=== PATIENT | male | born 1950 | race Caucasian/White ===

== ENCOUNTER 2019-08-16 14:29 | Outpatient (CLI) | payer MEDICARE, SELFPAY ==
--- NOTE | ~2019-08-16 | CT_ITS ---
EXAMINATION: CT soft tissue neck chest wo DATE: 08/16/2019 15:07 INDICATION: Left neck localized swelling. TECHNIQUE: Computed tomography (CT) of the neck and chest was performed without intravenous contrast. Automated exposure control and iterative reconstruction technique were employed. The dose-length pro duct was 1231.45 mGy-cm. COMPARISON: None FINDINGS: NECK CT: There are likely changes of ocular lens replacement surgeries. There are no pathologically e nlarged lymph nodes. There is mild mucosal thickening in the paranasal sinuses. The mastoid air cells are normal. There is severe cervical spondylosis. CHEST CT: The lungs demonstrate mild atelectasis. There is a 3 mm nodule in right middle lobe, likely benign. No pleural effusion. The heart size is normal. No pericardial effusion. There are surgical c hanges of the stomach. There is moderate thoracic spondylosis. IMPRESSION: 1. No abnormal mass or lymphadenopathy. Reviewed, dictated and finalized at location A.
== END 2019-08-16 14:30 | disposition home or self-care (01) ==
PROVIDERS: PCP Emergency Medicine; Visit Provider Emergency Medicine
DX: R22.1 Localized swelling, mass and lump, neck (principal)
CPT/HCPCS: 70490; 71250

== ENCOUNTER 2020-10-08 14:04 | Emergency (ER) | payer MEDICARE, SELFPAY ==
[2020-10-08 14:13] VITALS: BP 118/72; PULSE 63; RESP 18; TEMP 36.9; O2SAT 99
--- NOTE | 2020-10-08 14:28 | ED.SKABFB ---
HPI - Skin/Abscess/Foreign Bdy General Chief complaint: Extremity Injury, Upper Stated complaint: Swollen finger on Lt hand Time Seen by Provider: 10/08/20 14:18 Source: patient and RN notes reviewed Mode of arrival: ambulatory Limitations: no limitations History of Present Illness HPI narrative: Patient presents today complaining of a wasp sting to his left second finger that was sustained yesterday. He was stung through a thick work glove to the dorsum of his finger. States the hand has been swelling since last night and itches profusely. He has tried cortisone and Benadryl without relief. Denies pain. MD complaint: insect bite/sting Related Data Home Medications Medication Instructions Recorded Confirmed tadalafil 5 mg tablet 5 mg PO DAILY 04/19/19 05/13/20 calcium carbonate 500 mg calcium 500 mg PO DAILY 08/08/19 05/13/20 (1,250 mg) chewable tablet calcium polycarbophil 625 mg tablet 1,250 mg PO BID 08/08/19 05/13/20 cetirizine 10 mg tablet 5 mg PO DAILY PRN 08/08/19 05/13/20 Allergies Allergy/AdvReac Type Severity Reaction Status Date / Time No Known Allergies Allergy Verified 05/13/20 13:11 Review of Systems Review of Systems: CONSTITUTIONAL: Denies body aches, fever, chills, or sweats. EYES: Denies visual changes, redness, or discharge. ENT: Denies rhinorrhea, congestion, sore throat, or otalgia. CARDIOVASCULAR: Denies chest pain, palpitations, or edema. RESPIRATORY: Denies cough or dyspnea. GASTROINTESTINAL: Denies abdominal pain, nausea, vomiting, or diarrhea. GENITOURINARY: Denies dysuria or hematuria. SKIN: Denies rash, itching, or wounds. Insect sting to left hand MUSCULOSKELETAL: Denies back pain, joint pain, or myalgia. NEUROLOGIC: Denies headache, numbness, tingling, or weakness. PSYCH: Denies depression or anxiety. 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 Please see nursing chart for further information. There is no relevant family history pertinent to the presenting complaint Exam Narrative: GENERAL: Well-appearing, well-nourished, and in no acute distress. HEAD: Normocephalic, atraumatic. EYES: EOMI. No redness or drainage. Conjunctivae normal. ENT: Mucous membranes pink and moist. NECK: Normal AROM. CHEST: No respiratory distress. EXTREMITIES: Left hand: Small puncture wound to the dorsum of the left second finger at the proximal phalanx. Clear weeping from the puncture wound noted, due to the edema of the hand and finger. Mild to moderate edema noted to the distal hand. Mild erythema noted as well. Nontender. Range of motion of the second finger limited due to swelling. Distal sensation intact. Capillary refill normal. Radial pulse normal. No red streaking noted. SKIN: Warm, dry, no rash. Capillary refill normal. Normal skin turgor. NEURO: No focal deficits. Alert and oriented x3. Gait steady. PSYCH: Normal affect. No signs of depression or anxiety. Course Vital Signs V
== END 2020-10-08 14:32 | disposition home or self-care (01) ==
PROVIDERS: Emergency Provider Nurse Practitioner; PCP Emergency Medicine
DX: T63.461A Toxic effect of venom of wasps, accidental (unintentional), initial encounter (principal); Z87.891 Personal history of nicotine dependence; I10 Essential (primary) hypertension; E78.2 Mixed hyperlipidemia; G47.33 Obstructive sleep apnea (adult) (pediatric)
CPT/HCPCS: 99213; G0463

== ENCOUNTER → 2021-03-25 02:59 | Outpatient (CLI) | payer MEDICARE, SELFPAY ==
[2021-03-26 01:23] LABS: SARS-CoV-2 RNA PCR Negative
== END ==
PROVIDERS: PCP Emergency Medicine; Visit Provider Emergency Medicine
DX: R05.9 Cough, unspecified (principal); R19.7 Diarrhea, unspecified; R51.9 Headache, unspecified; R53.83 Other fatigue; R11.0 Nausea; Z20.822 Contact with and (suspected) exposure to COVID-19
CPT/HCPCS: C9803; U0003; U0005

== ENCOUNTER 2021-12-27 13:18 | Emergency (ER) | payer MEDICARE, SELFPAY ==
--- NOTE | ~2021-12-27 | XR_ITS ---
EXAMINATION: XR chest 2V DATE: 12/27/2021 14:02 INDICATION: Cough TECHNIQUE: PA and lateral views of the chest were obtained. COMPARISON: Chest CT dated 08/16/2019 FINDINGS: The lungs are clear with no focal airspace opacities, pulmonary edema, pleural effusion or pneumothor ax. The cardiomediastinal silhouette is normal. Moderate thoracic spondylosis. IMPRESSION: 1. No acute cardiopulmonary disease. Reviewed, dictated and finalized at location A.
[2021-12-27 13:45] VITALS: BP 118/76; PULSE 60; RESP 18; TEMP 36.5; O2SAT 100
--- NOTE | 2021-12-27 14:20 | ED.GENADULT ---
HPI - General Adult General Chief complaint: Upper Respiratory Infection Stated complaint: sorethroat,congestion History of Present Illness HPI narrative: Patient is a 71-year-old male who presents to the [facility] care via POV for an evaluation of cold symptoms that began 2 days ago. Additionally, he reports myalgias, productive cough, rhinorrhea, sore throat, and postnasal drip. Robitussin and ibuprofen provides relief. Nothing worsens symptoms. Patient is a former smoker. He states he quit smoking 20 to 30 years ago. Denies known exposure to sick contacts Related Data Allergies Allergy/AdvReac Type Severity Reaction Status Date / Time mercury (elemental) AdvReac Unknown Unknown Verified 12/27/21 13:50 Review of Systems Review of Systems: Denies fever, chills, sweats, change in appetite, poor p.o. intake, headaches, dizziness, LOC, sinus problems, ear pain, nasal congestion, abdominal pain, nausea, vomiting, diarrhea, drooling, difficulty swallowing, shortness of breath, chest pain, wheezing, and heart palpitations PMFSH Past Medical History Medical History Body mass index [BMI] 39.0-39.9, adult (12/30/16) Body mass index [BMI] 40.0-44.9, adult (03/22/17) Cough Cough with congestion of paranasal sinus Dependence on other enabling machines and devices GARZA (dyspnea on exertion) Dyslipidemia Dysuria Encounter for screening colonoscopy HTN (hypertension), benign Hyperglycemia Mixed hyperlipidemia Moderate single current episode of major depressive disorder Morbid obesity with BMI of 40.0-44.9, adult JAEL on CPAP Viral syndrome Wheezing Surgical History Surgical History H/O inguinal hernia repair 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 Family History Family History Father Family history of malignant neoplasm, Onset Age: 75 Alcoholism Mother Family history of kidney disease Family history of chronic obstructive pulmonary disease Sibling Family history of psoriatic arthritis Grandparent Heart disease Social History Social History Social History: quite 20 years ago Smoking status: Never smoker Second hand tobacco smoke exposure: No Alcohol intake: current Substance use: never Substance use type: does not use Gender identity (if verbalized by the patient): Male Spiritual care concerns: No Agree to blood products: Yes Comments I have reviewed and agree with the patient's past medical, surgical, social, and family hx as documented by the RN. There is no relevant family history pertinent to the presenting complaint. Exam Narrative: GENERAL: Well-appearing, well-nourished, and in no acute distress. HEAD: Normocephalic, atraumatic. No sinus tenderness or facial swelling appreciated. EYES: PERRLA and EOMI. No evidence of erythema, swelling, or drainage. ENT: Bilateral external ears and ear canals normal. Bilateral TMs are normal.No TM perforation. Nares clear, no rhinorrhea or epistaxis. Bilateral turbinates without erythema/ swelling. Mucous membranes moist and pink. Uvula is midline without erythema and swelling. Moderate erythema and mild swelling noted to oropharynx otherwise normal. Breath odor and voice normal. NECK: Supple. No Lymphadenopathy or nuchal rigidity appreciated. CHEST: Bilateral lung lakhani are clear to auscultation. No respiratory distress. No evidence of cough or pleuritic cp upon examination. HEART: Regular rate and rhythm. No murmur, gallop, or rub heard. EXTREMITIES: Normal range of motion. No edema. SKIN: Warm, dry, no rash. NEURO: No focal deficits. Alert and oriented x3. Course Course Level of Care: Express Care Visit Vital Signs Vital signs: Vital Signs Temperature 97.7 F 12/27/21 13:45 Pulse
== END 2021-12-27 14:31 | disposition home or self-care (01) ==
PROVIDERS: Emergency Provider Nurse Practitioner Family; PCP Emergency Medicine
DX: J06.9 Acute upper respiratory infection, unspecified (principal); Z20.822 Contact with and (suspected) exposure to COVID-19; Z87.891 Personal history of nicotine dependence; E78.2 Mixed hyperlipidemia; E66.01 Morbid (severe) obesity due to excess calories; Z68.37 Body mass index [BMI] 37.0-37.9, adult; G47.33 Obstructive sleep apnea (adult) (pediatric)
CPT/HCPCS: 71046; 87081; 87426; 87804; 87880; 99213; C9803; G0463

== ENCOUNTER 2022-02-01 11:43 | Emergency (ER) | payer MEDICARE, SELFPAY ==
[2022-02-01 12:38] VITALS: BP 127/81; PULSE 60; RESP 18; TEMP 36.6; O2SAT 100
--- NOTE | 2022-02-01 13:21 | ED.SKABFB ---
HPI - Skin/Abscess/Foreign Bdy General Chief complaint: Skin/Abscess/Foreign Body Stated complaint: rash Time Seen by Provider: 02/01/22 13:21 Source: patient Mode of arrival: ambulatory Limitations: no limitations History of Present Illness HPI narrative: 71-year-old male presented for complaints of painful red rash to right lower leg for 3 days. Denies itching, swelling or drainage. He has used antibiotic cream and hydrocortisone cream without relief. Endorses a history of shingles 5 years ago and has had 1 of his shingles vaccination. He denies rash or skin lesions in any other locations. He denies changes to lotion, soap, detergent etc.. Related Data Allergies Allergy/AdvReac Type Severity Reaction Status Date / Time mercury (elemental) AdvReac Unknown Unknown Verified 02/01/22 12:57 Review of Systems Review of Systems: CONSTITUTIONAL: Denies body aches, fever, chills, or sweats. EYES: Denies visual changes, redness, or discharge. ENT: Denies rhinorrhea, congestion CARDIOVASCULAR: Denies chest pain, palpitations, or edema. RESPIRATORY: Denies cough or dyspnea. GASTROINTESTINAL: Denies abdominal pain, nausea, vomiting, or diarrhea. SKIN: per HPI MUSCULOSKELETAL: Denies back pain, joint pain, or myalgia. NEUROLOGIC: Denies headache, numbness, tingling, or weakness. 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 Family History Family History Father Family history of malignant neoplasm, Onset Age: 75 Alcoholism Mother Family history of kidney disease Family history of chronic obstructive pulmonary disease Sibling Family history of psoriatic arthritis Grandparent Heart disease Social History Social History Social History: quite 20 years ago Smoking status: Never smoker Second hand tobacco smoke exposure: No Alcohol intake: current Substance use: never Substance use type: does not use Gender identity (if verbalized by the patient): Male Spiritual care concerns: No Agree to blood products: Yes Comments At time of signature, I have reviewed and agree with nursing past medical, surgical, social and family history unless otherwise noted. Please see nursing chart for further information. There is no relevant family history pertinent to the presenting complaint Exam Narrative: GENERAL: Well-appearing HEAD: Normocephalic, atraumatic. EYES: conjunctivae clear, and EOMI. ENT: Mucous membranes moist. Oropharynx without edema, erythema or lesions. NECK: Supple. No lymphadenopathy CHEST: Clear to auscultation. HEART: Regular rate and rhythm. SKIN: Warm, dry. Erythematous open vesicals in cluster to right lower leg approximately 6 cm diameter mild clear oozing, consistent with zoster NEURO: Alert and oriented x3. Course Course Emergency Course: Patient is aware of diagnosis, understands and agrees to treatment plan. Anticipatory guidance given. Patient agrees to follow-up as directed and is aware of reasons to seek care at the emergency department. Portions of this record may have been created with voice recognition software Level of Care: [facility] Care Visit
== END 2022-02-01 13:35 | disposition home or self-care (01) ==
PROVIDERS: Emergency Provider Nurse Practitioner Family; PCP Emergency Medicine
DX: B02.9 Zoster without complications (principal); I10 Essential (primary) hypertension; E78.2 Mixed hyperlipidemia; E66.01 Morbid (severe) obesity due to excess calories; Z68.35 Body mass index [BMI] 35.0-35.9, adult; G47.33 Obstructive sleep apnea (adult) (pediatric); Z98.84 Bariatric surgery status
CPT/HCPCS: 99213; G0463

== ENCOUNTER → 2022-04-19 17:05 | Outpatient (CLI) | payer MEDICARE, SELFPAY ==
--- NOTE | ~2022-04-19 | XR_ITS ---
EXAMINATION: XR foot LT 2V DATE: 04/19/2022 17:45 INDICATION: Left foot pain TECHNIQUE: Dorsoplantar, two oblique and lateral views of the left foot were obtained. COMPARISON: None. FINDINGS: Internal fixation at the distal tibia with a pair of screws at the medial malleolus and medial plate and screws. Bone alignment is normal. No acute fractures. Severe osteoarthritis at the first metatars ophalangeal joint. Mild to moderate osteoarthritis at the left ankle and mild osteoarthritis at the s ubtalar and many of the remaining joints in the mid and forefoot. Moderate sized plantar calcaneal sp ur. IMPRESSION: 1. 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 [facility] IMPRESSION: 1. 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
== END ==
PROVIDERS: PCP Emergency Medicine; Visit Provider Emergency Medicine
DX: M19.072 Primary osteoarthritis, left ankle and foot (principal)
CPT/HCPCS: 73620

== ENCOUNTER 2022-05-27 08:03 | Emergency (ER) | payer MEDICARE, SELFPAY ==
[2022-05-27 08:12] VITALS: BP 125/72; PULSE 60; RESP 12; TEMP 36.2; O2SAT 98
--- NOTE | 2022-05-27 08:17 | ED.URI ---
HPI - URI/Sore Throat General Chief Complaint: Upper Respiratory Infection Stated Complaint: Congestion,Cough,Body Aches,Fatigue Time Seen by Provider: 05/27/22 08:17 Source: patient, RN notes reviewed and old records reviewed Mode of arrival: ambulatory Limitations: no limitations History of Present Illness HPI Narrative: 72 year old male presents to [facility] Care with complaints of cough, body aches, fatigue, greenish sinus drainage with congestion and frontal headache with facial sinus pressure for the past 6-7 days. Patient reports that he has been taking Claritin, Flonase nasal spray,Robitussin and also Ibuprofen for his symptoms. MD elicited complaint: cough, sore throat, rhinorrhea, nasal congestion, sinus pain and other (headache) Pertinent past history: sinusitis Onset (ago): day(s) (6-7 days) Pain scale (0-10): 2 Able to tolerate fluids by mouth: Yes Associated symptoms: rhinorrhea, nasal congestion, sore throat, cough and other (fatigue) Treatments prior to arrival: ibuprofen and other (Flonase , claritin) Related Data Allergies Allergy/AdvReac Type Severity Reaction Status Date / Time mercury (elemental) AdvReac Unknown Unknown Verified 05/27/22 08:19 Review of Systems Review of Systems: CONSTITUTIONAL: Denies malaise, chills, sweats, or fever. EYES: Denies visual changes, redness, or discharge. ENT: Reports rhinorrhea, congestion, sinus pain, no otalgia positive for some sore throat. CARDIOVASCULAR: Denies chest pain, palpitations, or edema. RESPIRATORY: Reports occasional dry cough.? Denies dyspnea. GASTROINTESTINAL: Denies abdominal pain, nausea, vomiting, diarrhea SKIN: Denies rash or itching. MUSCULOSKELETAL: Denies myalgia. NEUROLOGIC: reports frontal headache. All systems reviewed & are unremarkable except as noted in HPI and below PMFSH Past Medical History Medical History Body mass index [BMI] 39.0-39.9, adult (12/30/16) Body mass index [BMI] 40.0-44.9, adult (03/22/17) Cough Cough with congestion of paranasal sinus Dependence on other enabling machines and devices GARZA (dyspnea on exertion) Dyslipidemia Dysuria Encounter for screening colonoscopy HTN (hypertension), benign Hyperglycemia Mixed hyperlipidemia Moderate single current episode of major depressive disorder Morbid obesity with BMI of 40.0-44.9, adult JAEL on CPAP Viral syndrome Wheezing Surgical History Surgical History H/O inguinal hernia repair 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 Family History Family History Father Family history of malignant neoplasm, Onset Age: 75 Alcoholism Mother Family history of kidney disease Family history of chronic obstructive pulmonary disease Sibling Family history of psoriatic arthritis Grandparent Heart disease Social History Social History Social History: quite 20 years ago Smoking status: Never smoker Second hand tobacco smoke exposure: No Alcohol intake: current Substance use: never Substance use type: does not use Living arrangements: with family Gender identity (if verbalized by the patient): Male Spiritual care concerns: No Agree to blood products: Yes Comments At time of signature, agree with nursing past medical, surgical, social and family history. There is no relevant family history pertinent to the presenting complaint Exam Narrative: GENERAL: Well-appearing, well-nourished, and in no acute distress. HEAD: Normocephalic EYES: PERRLA, conjunctivae clear ENT: Nares clear, turbinates edematous and erythematous, clear to greenish nasal discharge. Mucous membranes moist. TM pearly davidson with dull light reflex bilaterally; no tragal tenderness. Oropharynx erythematous without lesions. Tonsils not enlarged
== END 2022-05-27 08:36 | disposition home or self-care (01) ==
PROVIDERS: Emergency Provider Registered Nurse; PCP Emergency Medicine
DX: J01.90 Acute sinusitis, unspecified (principal); Z87.891 Personal history of nicotine dependence; I10 Essential (primary) hypertension; E78.2 Mixed hyperlipidemia; E66.01 Morbid (severe) obesity due to excess calories; Z68.35 Body mass index [BMI] 35.0-35.9, adult; G47.33 Obstructive sleep apnea (adult) (pediatric); Z98.84 Bariatric surgery status
CPT/HCPCS: 99213; G0463

== ENCOUNTER 2022-09-16 08:01 | Emergency (ER) | payer MEDICARE, SELFPAY ==
--- NOTE | ~2022-09-16 | XR_ITS ---
EXAMINATION: XR heel LT min 2V DATE: 09/16/2022 08:27 INDICATION: Left heel pain. TECHNIQUE: 2 views of left calcaneus were obtained. COMPARISON: Left foot radiographs 04/19/2022 FINDINGS: Bone alignment is normal. No acute fracture. There is plate and screw fixation of distal ti edilberto. There is mild midfoot osteoarthritis. There is mild ankle joint osteoarthritis. There is an enth esophyte at plantar aspect of calcaneal tuberosity. IMPRESSION: 1. Mild polyarticular osteoarthritis. Reviewed, dictated and finalized at location A.
--- NOTE | 2022-09-16 08:10 | ED.EXTPRO ---
HPI - Extremity Problem General Chief complaint: Extremity Injury, Lower Stated complaint: lt foot pain Time Seen by Provider: 09/16/22 08:10 Source: patient Mode of arrival: ambulatory Limitations: no limitations History of Present Illness HPI Narrative: Jewel is a 72-year-old male patient presenting to the clinic today with complaints of left heel pain. He reports symptoms began yesterday when he was jumping up into a bus. He reports he felt a pop to the medial left heel. History of fracture to the left heel. States pain is worse with walking/bearing weight at 1st and improves as he is walking. Related Data Allergies Allergy/AdvReac Type Severity Reaction Status Date / Time mercury (elemental) AdvReac Unknown Unknown Verified 09/16/22 08:20 Review of Systems Review of Systems: Pertinent positives per HPI. Patient denies any fever, chills, rash, headache, visual changes, dizziness, cough, runny nose, sore throat, shortness of breath, chest pain, palpitations, nausea, vomiting, diarrhea, constipation, abdominal pain, or any urinary issues. [facility] Past Medical History Medical History Body mass index [BMI] 39.0-39.9, adult (12/30/16) Body mass index [BMI] 40.0-44.9, adult (03/22/17) Cough Cough with congestion of paranasal sinus Dependence on other enabling machines and devices GARZA (dyspnea on exertion) Dyslipidemia Dysuria Encounter for screening colonoscopy HTN (hypertension), benign Hyperglycemia Mixed hyperlipidemia Moderate single current episode of major depressive disorder Morbid obesity with BMI of 40.0-44.9, adult JAEL on CPAP Viral syndrome Wheezing Surgical History Surgical History H/O inguinal hernia repair 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 Family History Family History Father Family history of malignant neoplasm, Onset Age: 75 Alcoholism Mother Family history of kidney disease Family history of chronic obstructive pulmonary disease Sibling Family history of psoriatic arthritis Grandparent Heart disease Social History Social History Social History: quite 20 years ago Smoking status: Never smoker Second hand tobacco smoke exposure: No Alcohol intake: current Substance use: never Substance use type: does not use Living arrangements: with family Gender identity (if verbalized by the patient): Male Spiritual care concerns: No Agree to blood products: Yes Comments At the time of my signature, I reviewed and agree with the nursing past medical, surgical, social, and family history. There is no relevant family history pertinent to the patient complaint. Exam Narrative: General: Well-developed, well nourished, in no apparent distress Head: Normocephalic, atraumatic. Cardio: Regular rate and rhythm, s1 and s2 normal, no murmur appreciated. Resp: Clear to auscultation bilaterally, no rhonchi, rales, wheezing or rubs. Musculoskeletal: No deformity,tender to palpation over the left medial heel, pain with plantar flexion against resistance to the left medial heel, grossly normal range of motion, muscle strength strong and equal, peripheral pulse strong, no edema, no cyanosis, normal gait and station Course Course Emergency Course: Portions of this record may have been created with voice recognition software. Level of Care: Express Care Visit Vital Signs Vital signs: Vital signs reviewed MDM - Extremity (Nontraumatic) MDM Narrative Medical decision making narrative: At the time of visit patient is resting comfortably on the exam table. X-ray of the left foot was performed Differential Diagnosis Differential diagnosis: Likely gout and other (Osteoarthritis, plantar fasciitis, metatarsalgia, foot s
[2022-09-16 08:15] VITALS: BP 138/77; PULSE 64; RESP 18; TEMP 36.3; O2SAT 99
== END 2022-09-16 08:40 | disposition home or self-care (01) ==
PROVIDERS: Emergency Provider Nurse Practitioner Family; PCP Emergency Medicine
DX: M77.32 Calcaneal spur, left foot (principal); M19.072 Primary osteoarthritis, left ankle and foot; Z87.891 Personal history of nicotine dependence; E78.5 Hyperlipidemia, unspecified; I10 Essential (primary) hypertension; E78.2 Mixed hyperlipidemia; G47.30 Sleep apnea, unspecified; E66.01 Morbid (severe) obesity due to excess calories; Z68.35 Body mass index [BMI] 35.0-35.9, adult
CPT/HCPCS: 73650; 99213; G0463

== ENCOUNTER 2022-10-30 08:38 | Emergency (ER) | payer MEDICARE, SELFPAY ==
[2022-10-30 08:51] VITALS: BP 147/95; PULSE 55; RESP 18; TEMP 36.3; O2SAT 100
--- NOTE | 2022-10-30 08:54 | ED.DIZZY ---
HPI - Dizziness General Chief Complaint: Dizziness Stated Complaint: dizziness Time Seen by Provider: 10/30/22 08:55 Source: patient Mode of arrival: ambulatory Limitations: no limitations History of Present Illness HPI Narrative: Patient is a 72-year-old male that presents with increasing dizziness over the past 3 days. Patient states standing up or bending over makes dizziness worse. Reports dizziness as feeling like he is going to pass out and not room spinning. Patient states he took his blood pressure last night and it was 78/56. Patient states he has only been taking 1 blood pressure medicine over the past month or 2 but did not take it today. Patient also having sinus pressure and drainage but denies any ear pain, headache, sore throat or fever. Denies any other cardiac history besides blood pressure. Does report his balance seems off. Has been nauseous but no vomiting. Related Data Allergies Allergy/AdvReac Type Severity Reaction Status Date / Time mercury (elemental) AdvReac Unknown Unknown Verified 09/16/22 08:20 Review of Systems Review of Systems: All systems reviewed & are unremarkable except as noted in HPI and below Constitutional: Constitutional: Denies body ache(s), Denies chills, Denies fatigue, Denies fever(s), Denies headache(s), Denies malaise and Denies weakness Eyes: Eyes: Denies blurry vision, Denies irritation and Denies loss of vision ENT: Denies otalgia, Denies headache(s), Reports nasal congestion, Denies nasal discharge, Denies sinus pain, Reports sinus pressure and Denies sore throat Cardiovascular: Cardiovascular: Denies chest pain, Denies irregular heart rhythm and Denies dyspnea Respiratory: Respiratory: Denies dyspnea Gastrointestinal: Gastrointestinal: Denies abdominal pain, Denies melena, Denies hematochezia, Denies diarrhea, Reports nausea and Denies vomiting Musculoskeletal: Musculoskeletal: Denies back pain, Denies myalgias and Denies arthralgias Integumentary/Breasts: Skin/Breast: Denies pruritus and Denies rash Neurologic: Reports dizziness, Denies syncope, Denies headache(s), Denies loss of vision and Denies weakness Psychiatric: Psychiatric: Reports no additional psychiatric complaints Endocrine: Endocrine: Denies fatigue [facility] Past Medical History Medical History Body mass index [BMI] 39.0-39.9, adult (12/30/16) Body mass index [BMI] 40.0-44.9, adult (03/22/17) Cough Cough with congestion of paranasal sinus Dependence on other enabling machines and devices GARZA (dyspnea on exertion) Dyslipidemia Dysuria Encounter for screening colonoscopy HTN (hypertension), benign Hyperglycemia Mixed hyperlipidemia Moderate single current episode of major depressive disorder Morbid obesity with BMI of 40.0-44.9, adult JAEL on CPAP Viral syndrome Wheezing Surgical History Surgical History H/O inguinal hernia repair 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 Family History Family History Father Family history of malignant neoplasm, Onset Age: 75 Alcoholism Mother Family history of kidney disease Family history of chronic obstructive pulmonary disease Sibling Family history of psoriatic arthritis Grandparent Heart disease Social History Social History Social History: quite 20 years ago Smoking status: Never smoker Second hand tobacco smoke exposure: No Alcohol intake: current Substance use: never Substance use type: does not use Living arrangements: with family Gender identity (if verbalized by the patient): Male Spiritual care concerns: No Agree to blood products: Yes Comments At time of signature, agree with nursing past medical, surgical, social and family history. There is no relevant family history pertinent to
[2022-10-30 09:23] VITALS: BP 128/81; BP 139/86; PULSE 52; PULSE 56
[2022-10-30 09:24] VITALS: BP 140/83; PULSE 57
--- NOTE | 2022-10-30 12:00 | ECG_ITS ---
Measurements Intervals [place] Rate: 52 P: -12 SD: 260 QRS: -21 QRSD: 98 T: 24 QT: 438 QTc: 410 Interpretive Statements SINUS BRADYCARDIA WITH FIRST DEGREE AV BLOCK POSSIBLE ANTERIOR MYOCARDIAL INFARCTION , OF INDETERMINATE AGE [30 ms Q WAVE IN V3/V4, OR R < 0.2 mV IN V4] ABNORMAL ECG COMPARED TO ECG 10/30/2022 09:15:00 NO SIGNIFICANT CHANGES Electronically Signed On 11-01-2022 7:21:59 CDT by Nestor Galvan M.D.
== END 2022-10-30 09:25 | disposition short-term general hospital (02) ==
PROVIDERS: Emergency Provider Nurse Practitioner Family; PCP Emergency Medicine
DX: R42 Dizziness and giddiness (principal); Z87.891 Personal history of nicotine dependence; I10 Essential (primary) hypertension; E78.2 Mixed hyperlipidemia; E66.01 Morbid (severe) obesity due to excess calories; Z68.35 Body mass index [BMI] 35.0-35.9, adult; G47.33 Obstructive sleep apnea (adult) (pediatric); Z98.84 Bariatric surgery status
CPT/HCPCS: 93005; 99213; G0463

== ENCOUNTER 2022-10-30 09:47 | Emergency (ER) | payer MEDICARE, SELFPAY ==
[2022-10-30] VITALS (28 sets, daily range): BP systolic 133–157; BP diastolic 56–107; PULSE 51–66; RESP 10–30; TEMP 37; O2SAT 96–100
--- NOTE | ~2022-10-30 | XR_ITS ---
EXAMINATION: XR chest 1V portable DATE: 10/30/2022 13:02 INDICATION: Dizziness. TECHNIQUE: A single frontal view of the chest was obtained on 2 radiographs. COMPARISON: Chest 2 views 12/27/2021, chest CT 08/16/2019 FINDINGS: There is no pneumonia, pleural effusion, or pneumothorax. The heart size is normal. IMPRESSION: 1. No acute cardiopulmonary disease. Reviewed, dictated and finalized at location A.
--- NOTE | ~2022-10-30 | CT_ITS ---
EXAMINATION: CT brain wo con INDICATION: Vertigo COMPARISON: None TECHNIQUE: Standard unenhanced head CT. The dose-length product (DLP) was 605.33 mGy-cm. The mA was a djusted according to patient size. Iterative reconstruction technique was employed. FINDINGS: There is no acute intraparenchymal hemorrhage. No evidence of mass lesion. No evidence of a cute infarction. There is mild periventricular and subcortical hypodensity probably related to small vessel ischemic disease. There is mild prominence of the sulci and ventricles related to cerebral atr ophy. Intracranial calcified cerebral atherosclerosis is noted. There are no extra-axial collections. There is no mass effect or midline shift. Changes in the globes are likely from ocular lens surgery. The visualized sinuses and mastoid air cells are well aerated. IMPRESSION: 1. No acute intracranial abnormality. 2. Age related findings. Reviewed, dictated and finalized at location F.
--- NOTE | 2022-10-30 10:39 | ECG_ITS ---
Measurements Intervals [place] Rate: 55 P: -3 KS: 223 QRS: -20 QRSD: 89 T: 17 QT: 440 QTc: 424 Interpretive Statements SINUS BRADYCARDIA WITH FIRST DEGREE AV BLOCK WITH OCCASIONAL VENTRICULAR PREMATURE COMPLEXES SEPTAL MYOCARDIAL INFARCTION [40+ ms Q WAVE IN V1/V2], OF INDETERMINATE AGE CONSIDER PREVIOUS INFERIOR INFARCTION ABNORMAL ECG COMPARED TO ECG 09/07/2018 07:52:29 NO SIGNIFICANT CHANGE Electronically Signed On 10-31-2022 7:06:15 CDT by Nestor Galvan M.D.
[2022-10-30 11:03] LABS: Basophils Absolute Auto 0.1 K/mm3 (0.0-0.1); Basophils Percent Auto 0.8 % (0.2-1.2); Eosinophils Absolute Auto 0.1 K/mm3 (0-0.3); Eosinophils Percent Auto 0.6 % (0-4.4); Hematocrit 44.7 % (42.0-52.0); Hemoglobin 15.1 g/dL (14.0-18.0); Immature Granulocyte Absolute 0.03 K/mm3 (0.00-0.031); Immature Granulocyte Percent A 0.3 % (0-0.5); Lymphocytes Absolute Auto 1.59 K/mm3 (0.9-3.2); Lymphocytes Percent Auto 16.8 % (18.3-44.2); Mean Corpuscular HGB Conc 33.8 g/dl (32-36); Mean Corpuscular Hemoglobin 32.5 pg (26-34); Mean Corpuscular Volume 96.1 fl (80-100); Mean Platelet Volume 10.4 fl (7.4-10.4); Monocytes Absolute Auto 0.6 K/mm3 (0.1-0.6); Monocytes Percent Auto 6.3 % (2.6-8.5); Neutrophils Absolute Auto 7.1 K/mm3 (1.3-6.7); Neutrophils Percent Auto 75.2 % (45.5-73.1); Platelet Count Result 264 k/mm3 (150-375); Red Blood Count 4.65 M/mm3 (4.6-6.20); Red Cell Distribution Width 13.6 % (11.5-14.5); White Blood Count 9.5 K/mm3 (4.5-10.0)
[2022-10-30 11:15] LABS: Alanine Aminotransferase 18 U/L (6-50); Albumin Level 4.7 g/dL (3.5-5.1); Alkaline Phosphatase 71 U/L (38-126); Anion Gap 12 mmol/L (8-16); Aspartate Amino Transferase 27 U/L (17-59); Bilirubin,Total 1.1 mg/dL (0.2-1.3); Blood Urea Nitrogen 12 mg/dL (9-20); Calcium 9.8 mg/dL (8.4-10.2); Carbon Dioxide 23 mmol/L (22-30); Chloride 102 mmol/L (98-107); Estimated CRCL calculation 90 ml/min; Estimated Glomerular Filt Rate > 60; Glucose 114 mg/dL (65-110); Potassium 3.9 mmol/L (3.4-5.0); Sodium 137 mmol/L (137-145)
--- NOTE | 2022-10-30 12:57 | ED.DIZZY ---
HPI - Dizziness General Chief Complaint: Dizziness Stated Complaint: dizziness Time Seen by Provider: 10/30/22 12:00 History of Present Illness HPI Narrative: 72-year-old male with history of hypertension presented the emergency department for evaluation of 2 days of dizziness and lightheadedness. Patient reports he did have some episodes of low blood pressure yesterday and did hold his blood pressure medications. Patient did present to the prompt care today and was found to have positive orthostatic vitals. Upon arrival to emergency department patient does feel improved and denies any complaint. Patient states he may not drink enough water. Patient denies any exertional shortness of breath at his typical baseline but does have increased exertional fatigue and dizziness over the last 2 days. Patient did have a water pill added approximately a month ago but only took this for short time and has not taken it for many weeks. Related Data Allergies Allergy/AdvReac Type Severity Reaction Status Date / Time mercury (elemental) AdvReac Unknown Unknown Verified 09/16/22 08:20 Review of Systems Review of Systems: All systems reviewed & are unremarkable except as noted in HPI and below PMFSH Past Medical History Medical History Body mass index [BMI] 39.0-39.9, adult (12/30/16) Body mass index [BMI] 40.0-44.9, adult (03/22/17) Cough Cough with congestion of paranasal sinus Dependence on other enabling machines and devices GARZA (dyspnea on exertion) Dyslipidemia Dysuria Encounter for screening colonoscopy HTN (hypertension), benign Hyperglycemia Mixed hyperlipidemia Moderate single current episode of major depressive disorder Morbid obesity with BMI of 40.0-44.9, adult JAEL on CPAP Viral syndrome Wheezing Surgical History Surgical History H/O inguinal hernia repair 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 Family History Family History Father Family history of malignant neoplasm, Onset Age: 75 Alcoholism Mother Family history of kidney disease Family history of chronic obstructive pulmonary disease Sibling Family history of psoriatic arthritis Grandparent Heart disease Social History Social History Social History: quite 20 years ago Smoking status: Never smoker Second hand tobacco smoke exposure: No Alcohol intake: current Substance use: never Substance use type: does not use Living arrangements: with family Gender identity (if verbalized by the patient): Male Spiritual care concerns: No Agree to blood products: Yes Exam Narrative: APPEARANCE: Well appearing, no pain, no distress, well-nourished. HEAD: normocephalic, atraumatic. EYES: PERRLA/EOMI, conjunctivae clear. NOSE: Normal no drainage EARS:TMS clear with good light reflex. THROAT: Pharynx clear, no exudate. NECK: Supple. No adenopathy, no masses. RESPIRATORY: Airway patent, respirations nonlabored. Clear to auscultation bilaterally, no rales, rhonchi, wheezing. CARDIOVASCULAR: Regular rate and rhythm without murmurs rubs or gallops. ABDOMINAL: Soft, nontender, nondistended, normal bowel sounds MUSCULOSKELETAL: Moves all extremities. Strength/ROM intact, No edema, No calf tenderness. NEURO: Alert. Cranial nerves II through XII intact. Grossly intact SKIN: Warm, dry. Normal Color Course Course Emergency Course: 72-year-old male presented the emergency department for evaluation of dizziness and positive orthostatic vital signs at urgent care today. Patient family updated on the plan for work-up rehydration and rechecking of his orthostatic vitals. Patient had normal orthostatic vital signs after rehydration. Patient states he does still have some residual lightheadedness. Patient was improved aft
[2022-10-30] MEDS: SODIUM CHLORIDE 0.9% IV 1,000 ML 999 ML IV CONT (13:04)
[2022-10-30] MEDS: MECLIZINE HCL 25 MG TABLET PO (16:21)
== END 2022-10-30 17:46 | disposition home or self-care (01) ==
PROVIDERS: Emergency Medicine; Emergency Provider Emergency Medicine; PCP Emergency Medicine
DX: R42 Dizziness and giddiness (principal); I10 Essential (primary) hypertension; E78.2 Mixed hyperlipidemia; G47.33 Obstructive sleep apnea (adult) (pediatric); E66.01 Morbid (severe) obesity due to excess calories; Z68.35 Body mass index [BMI] 35.0-35.9, adult; Z98.84 Bariatric surgery status; I44.0 Atrioventricular block, first degree; I49.3 Ventricular premature depolarization; R94.31 Abnormal electrocardiogram [ECG] [EKG]
CPT/HCPCS: 36415; 70450; 71045; 80053; 85025; 93005; 96360; 96361; 99284; A9270; J7030

== ENCOUNTER 2023-01-22 08:35 | Emergency (ER) | payer MEDICARE, SELFPAY ==
--- NOTE | ~2023-01-22 | XR_ITS ---
EXAMINATION: XR chest 2V DATE: 01/22/2023 09:21 INDICATION: Cough. Left lung crackles. TECHNIQUE: Frontal and lateral views of the chest were obtained. COMPARISON: Chest single view 10/30/2022, chest CT 08/16/2019 FINDINGS: There are mild airspace opacities in the lower lung zones. No pleural effusion or pneumotho rax. The heart size is normal. There is an old healed left rib fracture. IMPRESSION: 1. Mild airspace opacities in the lower lung zones, consistent with atelectasis versus pneumonia. Reviewed, dictated and finalized at location A. INAL INTELLIGENCE ANALYST
[2023-01-22 08:57] VITALS: BP 119/72; PULSE 76; RESP 18; TEMP 36.5; O2SAT 99
--- NOTE | 2023-01-22 09:22 | ED.URI ---
HPI - URI/Sore Throat General Chief Complaint: Upper Respiratory Infection Stated Complaint: cough,congestion Time Seen by Provider: 01/22/23 09:00 Source: patient Mode of arrival: ambulatory Limitations: no limitations History of Present Illness HPI Narrative: Jewel is a 72-year-old male patient presenting to the clinic today with complaints of cough and chest congestion x2 weeks. He reports he is bringing up some clear phlegm. He denies any fever or chills. He denies any shortness of breath. No history of COPD or asthma MD elicited complaint: sore throat and nasal congestion Related Data Allergies Allergy/AdvReac Type Severity Reaction Status Date / Time mercury (elemental) AdvReac Unknown Unknown Verified 11/03/22 10:04 Review of Systems Review of Systems: Pertinent positives per HPI. Patient denies any fever, chills, rash, headache, visual changes, dizziness, shortness of breath, chest pain, palpitations, nausea, vomiting, diarrhea, constipation, abdominal pain, or any urinary issues. PMFSH Past Medical History Medical History Body mass index [BMI] 39.0-39.9, adult (12/30/16) Body mass index [BMI] 40.0-44.9, adult (03/22/17) Cough Cough with congestion of paranasal sinus Dependence on other enabling machines and devices GARZA (dyspnea on exertion) Dyslipidemia Dysuria Encounter for screening colonoscopy HTN (hypertension), benign Hyperglycemia Mixed hyperlipidemia Moderate single current episode of major depressive disorder Morbid obesity with BMI of 40.0-44.9, adult JAEL on CPAP Sinusitis Viral syndrome Wheezing Surgical History Surgical History H/O inguinal hernia repair 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 Family History Family History Father Family history of malignant neoplasm, Onset Age: 75 Alcoholism Mother Family history of kidney disease Family history of chronic obstructive pulmonary disease Sibling Family history of psoriatic arthritis Grandparent Heart disease Social History Social History Social History: quite 20 years ago Smoking status: Never smoker Second hand tobacco smoke exposure: No Alcohol intake: current Substance use: never Substance use type: does not use Lack of Transportation: No Lack of Food: Never True Current Housing: I Have Housing Concerned About Future Housing: No Difficulty Paying Gas/Electric Bills: No Difficulty Paying for Meds: No Currently Unemployed: No Education: Trade/Vocational Certificate Difficulty w/ Childcare or Family Care: No Living arrangements: with family Gender identity (if verbalized by the patient): Male Spiritual care concerns: No Agree to blood products: Yes Comments At the time of my signature, I reviewed and agree with the nursing past medical, surgical, social, and family history. There is no relevant family history pertinent to the patient complaint. Exam Narrative: General: Well-developed, obese, in no apparent distress Head: Normocephalic, atraumatic Eyes: Pupils equally round and reactive to light bilaterally, EOM intact, sclera and conjunctive clear, no discharge, lids normal Ears: TMs intact and clear, ear canals clear, no drainage, grossly hearing normal. Nose: Nares patent, no discharge, no inflammation, no sinus tenderness. Mouth: Oral pharynx without lesions or masses, good dentition, MMM. Neck: Supple, trachea midline, no enlargement of anterior or posterior cervical nodes, no thyroid masses or goiter palpable. Cardio: Regular rate and rhythm, s1 and s2 normal, no murmur appreciated. Resp: Crackles heard over the left lower lobe, no rhonchi, wheezing or rubs Course Course Emergency Course: Portions of this record m
--- NOTE | 2023-01-22 14:13 | PC.NURSE ---
0940 PT SENT HOME WITH INCENTIVE SPIROMETER, STATED HAS USED BEFORE NO DIRECTION NEEDED.
== END 2023-01-22 09:40 | disposition home or self-care (01) ==
PROVIDERS: Emergency Provider Nurse Practitioner Family; PCP Emergency Medicine
DX: J18.9 Pneumonia, unspecified organism (principal); I10 Essential (primary) hypertension; E78.2 Mixed hyperlipidemia; Z20.822 Contact with and (suspected) exposure to COVID-19
CPT/HCPCS: 71046; 87081; 87426; 87804; 87880; 99213; C9803; G0463

== ENCOUNTER 2023-06-03 15:42 | Emergency (ER) | payer MEDICARE, SELFPAY ==
--- NOTE | 2023-06-03 15:45 | ED.URI ---
HPI - URI/Sore Throat General Chief Complaint: Upper Respiratory Infection Stated Complaint: Sinus Time Seen by Provider: 06/03/23 15:44 Source: patient Mode of arrival: ambulatory Limitations: no limitations History of Present Illness HPI Narrative: Patient is a 73-year-old male who presents with 3 days of sinus congestion, drainage, cough and body aches. 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 Has been taking Robitussin and [place] with no relief. Denies any fever, chills, nausea, vomiting, diarrhea. Related Data Allergies Allergy/AdvReac Type Severity Reaction Status Date / Time mercury (elemental) AdvReac Unknown Unknown Verified 04/20/23 10:10 Review of Systems Review of Systems: All systems reviewed & are unremarkable except as noted in HPI and below Constitutional: Constitutional: Reports body ache(s), Denies chills, Denies fatigue, Denies fever(s), Denies headache(s), Denies malaise and Denies weakness Eyes: Eyes: Denies blurry vision, Denies itchy eyes and Denies loss of vision ENT: Denies otalgia, Denies headache(s), Reports nasal congestion, Denies sinus pain and Denies sore throat Cardiovascular: Cardiovascular: Denies chest pain, Denies irregular heart rhythm and Denies dyspnea Respiratory: Respiratory: Reports cough and Denies dyspnea Gastrointestinal: Gastrointestinal: Denies abdominal pain, Denies diarrhea, Denies nausea and Denies vomiting Musculoskeletal: Musculoskeletal: Denies back pain, Denies myalgias and Denies arthralgias Integumentary/Breasts: Skin/Breast: Denies pruritus and Denies rash Neurologic: Denies headache(s), Denies loss of vision and Denies weakness Psychiatric: Psychiatric: Reports no additional psychiatric complaints Endocrine: Endocrine: Denies fatigue Allergic/Immunologic: Allergic/Immunologic: Denies itchy eyes PMFSH Past Medical History Medical History Body mass index [BMI] 39.0-39.9, adult (12/30/16) Body mass index [BMI] 40.0-44.9, adult (03/22/17) Cough Cough with congestion of paranasal sinus Dependence on other enabling machines and devices GARZA (dyspnea on exertion) Dyslipidemia Dysuria Encounter for screening colonoscopy HTN (hypertension), benign Hyperglycemia Mixed hyperlipidemia Moderate single current episode of major depressive disorder Morbid obesity with BMI of 40.0-44.9, adult JAEL on CPAP Screening PSA (prostate specific antigen) Sinusitis Viral syndrome Wheezing Surgical History Surgical History H/O inguinal hernia repair 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 Family History Family History Father Family history of malignant neoplasm, Onset Age: 75 Alcoholism Mother Family history of kidney disease Family history of chronic obstructive pulmonary disease Sibling Family history of psoriatic arthritis Grandparent Heart disease Social History Social History Social History: quite 20 years ago Smoking status: Never smoker Second hand tobacco smoke exposure: No Alcohol intake: current Substance use: never Substance use type: does not use Current Housing: Decline to Answer Concerned About Future Housing: Decline to Answer Difficulty Paying Gas/Electric Bills: Decline to Answer Difficulty Paying for Meds: Decline to Answer Currently Unemployed: Decline to Answer Education: Decline to Answer Difficulty w/ Childcare or Family Care: Decline to Answer Living arrangements: with family Gender identity (if verbalized by the patient): Male Spiritual care concerns: No Agree to blood products: Yes Comments At time of signature, agree with nursing past medical, surgical, social and family history. There is no relevant family history pertinent to the p
[2023-06-03 15:51] VITALS: BP 146/83; PULSE 65; RESP 16; TEMP 36.8; O2SAT 99
== END 2023-06-03 16:29 | disposition home or self-care (01) ==
PROVIDERS: Emergency Provider Nurse Practitioner Family; PCP Emergency Medicine
DX: J06.9 Acute upper respiratory infection, unspecified (principal); R05.9 Cough, unspecified; Z87.01 Personal history of pneumonia (recurrent); Z20.822 Contact with and (suspected) exposure to COVID-19; Z87.891 Personal history of nicotine dependence; E78.5 Hyperlipidemia, unspecified; I10 Essential (primary) hypertension; E78.2 Mixed hyperlipidemia; E66.01 Morbid (severe) obesity due to excess calories; Z68.37 Body mass index [BMI] 37.0-37.9, adult; G47.33 Obstructive sleep apnea (adult) (pediatric); Z98.84 Bariatric surgery status
CPT/HCPCS: 87426; 87804; 99213; G0463

== ENCOUNTER 2023-10-20 08:06 | Emergency (ER) | payer MEDICARE, SELFPAY ==
--- NOTE | 2023-10-20 08:12 | ED.GENADULT ---
HPI - General Adult General Chief complaint: Upper Respiratory Infection Stated complaint: + covid-19 result Time Seen by Provider: 10/20/23 08:12 Source: patient, RN notes reviewed and old records reviewed Mode of arrival: ambulatory Limitations: no limitations History of Present Illness HPI narrative: 83-year-old male presents to the [facility] with concerns for COVID-19. Patient presents with sinus congestion, cough and generalized fatigue that started today. Tested positive for COVID-19 at home. Did take Tylenol prior to arrival Treatments prior to arrival: none Related Data Home Medications Medication Instructions Recorded Confirmed fexofenadine 180 mg tablet 180 mg PO DAILY 09/20/23 10/20/23 (Barb Allergy) Allergies Allergy/AdvReac Type Severity Reaction Status Date / Time mercury (elemental) Allergy Intermediate Rash Verified 10/20/23 08:25 Review of Systems Review of Systems: All systems reviewed & are unremarkable except as noted in HPI and below Constitutional: Constitutional: Reports no additional constitutional complaints Eyes: Eyes: Reports no additional eye complaints ENT: Reports as per HPI and Reports nasal congestion Cardiovascular: Cardiovascular: Reports no additional cardiovascular complaints, Denies chest pain and Denies dyspnea Respiratory: Respiratory: Reports as per HPI, Denies chest congestion, Reports cough and Denies dyspnea Gastrointestinal: Gastrointestinal: Reports no additional gastrointestinal complaints, Denies abdominal pain, Denies nausea and Denies vomiting Musculoskeletal: Musculoskeletal: Reports no additional musculoskeletal complaints Integumentary/Breasts: Skin/Breast: Reports system reviewed and no additional complaints, except as docu Neurologic: Reports system reviewed and no additional complaints, except as documented Psychiatric: Psychiatric: Reports no additional psychiatric complaints Allergic/Immunologic: Allergic/Immunologic: Reports no additional allergic/immunologic complaints [facility] Past Medical History Medical History Body mass index [BMI] 39.0-39.9, adult (12/30/16) Body mass index [BMI] 40.0-44.9, adult (03/22/17) Cough Cough with congestion of paranasal sinus Dependence on other enabling machines and devices GARZA (dyspnea on exertion) Dyslipidemia Dysuria Encounter for screening colonoscopy HTN (hypertension), benign Hyperglycemia Mixed hyperlipidemia Moderate single current episode of major depressive disorder Morbid obesity with BMI of 40.0-44.9, adult JAEL on CPAP Screening PSA (prostate specific antigen) Sinusitis Viral syndrome Wheezing Surgical History Surgical History H/O inguinal hernia repair 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 Family History Family History Father Family history of malignant neoplasm, Onset Age: 75 Alcoholism Mother Family history of kidney disease Family history of chronic obstructive pulmonary disease Sibling Family history of psoriatic arthritis Grandparent Heart disease Social History Social History Social History: quite 20 years ago Smoking status: Never smoker Second hand tobacco smoke exposure: No Alcohol intake: current Substance use: never Substance use type: does not use Current Housing: Decline to Answer Concerned About Future Housing: Decline to Answer Difficulty Paying Gas/Electric Bills: Decline to Answer Difficulty Paying for Meds: Decline to Answer Currently Unemployed: Decline to Answer Education: Decline to Answer Difficulty w/ Childcare or Family Care: Decline to Answer Living arrangements: with family Gender identity (if verbalized by the patient): Male Spiritual care concerns: No Agree to blood products: Yes
[2023-10-20 08:15] VITALS: BP 134/81; PULSE 64; RESP 18; TEMP 36.6; O2SAT 99
[2023-10-20 08:17] VITALS: BP 134/81; PULSE 64; RESP 18; TEMP 36.6; O2SAT 99
== END 2023-10-20 08:31 | disposition home or self-care (01) ==
PROVIDERS: Emergency Provider Nurse Practitioner; PCP Emergency Medicine
DX: U07.1 COVID-19 (principal); Z87.891 Personal history of nicotine dependence; I10 Essential (primary) hypertension; E78.2 Mixed hyperlipidemia; E66.01 Morbid (severe) obesity due to excess calories; Z68.37 Body mass index [BMI] 37.0-37.9, adult; G47.33 Obstructive sleep apnea (adult) (pediatric); Z98.84 Bariatric surgery status
CPT/HCPCS: 87426; 99212; G0463

== ENCOUNTER 2023-12-19 08:13 | Emergency (ER) | payer MEDICARE, SELFPAY ==
--- NOTE | ~2023-12-19 | XR_ITS ---
Clinical Indication: Cough PA and lateral views of the chest: Comparison: 01/22/2023 Findings: The lungs are clear, without evidence of focal consolidation or pleural effusion. Cardiome diastinal silhouette is within normal limits. Bones and soft tissues are unremarkable. Impression: Normal chest. Reviewed, dictated and finalized at location . Impression: Normal chest.
[2023-12-19 08:28] VITALS: BP 139/85; PULSE 58; RESP 18; TEMP 36.4; O2SAT 97
--- NOTE | 2023-12-19 08:32 | ED.URI ---
HPI - URI/Sore Throat General Chief Complaint: Upper Respiratory Infection Stated Complaint: coughing Time Seen by Provider: 12/19/23 08:35 Source: patient, RN notes reviewed and old records reviewed Mode of arrival: ambulatory Limitations: no limitations History of Present Illness HPI Narrative: 73-year-old male to [facility] with complaint of cough, fatigue, decreased sleep and sore throat for the past 2-3 weeks. Patient reports calling his PCP last week and being put on a Z-Phil. Patient states that his cough is sometimes productive with clear sputum. Patient has attempted to treat at home with [place] cold, Robitussin, hot tea and cough drops. Patient denies shortness of breath, difficulty swallowing, fever, pertinent medical history. Patient resting in exam room in no acute distress. Patient able to speak in complete sentences without difficulty. Respirations even and nonlabored. Related Data Home Medications Medication Instructions Recorded Confirmed fexofenadine 180 mg tablet 180 mg PO DAILY 09/20/23 12/19/23 ([facility]r Allergy) Allergies Allergy/AdvReac Type Severity Reaction Status Date / Time mercury (elemental) Allergy Intermediate Rash Verified 12/19/23 08:36 Review of Systems Review of Systems: All systems reviewed & are unremarkable except as noted in HPI and below Constitutional: Constitutional: Reports as per HPI, Reports difficulty sleeping and Reports fatigue Eyes: Eyes: Reports no additional eye complaints ENT: Reports as per HPI, Reports otalgia ( Bilateral fullness) and Reports sore throat Cardiovascular: Cardiovascular: Reports no additional cardiovascular complaints, Denies chest pain and Denies dyspnea Respiratory: Respiratory: Reports no additional respiratory complaints, Reports cough and Denies dyspnea Musculoskeletal: Musculoskeletal: Reports no additional musculoskeletal complaints Neurologic: Reports system reviewed and no additional complaints, except as documented Psychiatric: Psychiatric: Reports no additional psychiatric complaints [facility] Past Medical History Medical History Body mass index [BMI] 39.0-39.9, adult (12/30/16) Body mass index [BMI] 40.0-44.9, adult (03/22/17) Cough Cough with congestion of paranasal sinus Dependence on other enabling machines and devices GARZA (dyspnea on exertion) Dyslipidemia Dysuria Encounter for screening colonoscopy HTN (hypertension), benign Hyperglycemia Mixed hyperlipidemia Moderate single current episode of major depressive disorder Morbid obesity with BMI of 40.0-44.9, adult JAEL on CPAP Screening PSA (prostate specific antigen) Sinusitis Viral syndrome Wheezing Surgical History Surgical History H/O inguinal hernia repair 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 Family History Family History Father Family history of malignant neoplasm, Onset Age: 75 Alcoholism Mother Family history of kidney disease Family history of chronic obstructive pulmonary disease Sibling Family history of psoriatic arthritis Grandparent Heart disease Social History Social History Social History: quite 20 years ago Smoking status: Never smoker Second hand tobacco smoke exposure: No Alcohol intake: current Substance use: never Substance use type: does not use Current Housing: Decline to Answer Concerned About Future Housing: Decline to Answer Difficulty Paying Gas/Electric Bills: Decline to Answer Difficulty Paying for Meds: Decline to Answer Currently Unemployed: Decline to Answer Education: Decline to Answer Difficulty w/ Childcare or Family Care: Decline to Answer Living arrangements: with family Gender identity (if verbalized by the patient): Male
== END 2023-12-19 09:15 | disposition home or self-care (01) ==
PROVIDERS: Emergency Provider Nurse Practitioner Family; PCP Emergency Medicine
DX: H66.93 Otitis media, unspecified, bilateral (principal); I10 Essential (primary) hypertension; E78.2 Mixed hyperlipidemia; E66.01 Morbid (severe) obesity due to excess calories; Z68.37 Body mass index [BMI] 37.0-37.9, adult; G47.33 Obstructive sleep apnea (adult) (pediatric); Z98.84 Bariatric surgery status
CPT/HCPCS: 71046; 99213; G0463

== ENCOUNTER 2024-01-13 10:25 | Emergency (ER) | payer MEDICARE, SELFPAY ==
--- NOTE | ~2024-01-13 | XR_ITS ---
EXAMINATION: XR chest 2V DATE: 01/13/2024 11:19 INDICATION: Productive cough. TECHNIQUE: Frontal and lateral views of the chest were obtained. COMPARISON: Chest 2 views 12/19/2023, chest CT 08/16/2019 FINDINGS: There is no pneumonia, pleural effusion, or pneumothorax. The heart size is normal. IMPRESSION: 1. No acute cardiopulmonary disease. Reviewed, dictated and finalized at location B.
[2024-01-13 10:36] VITALS: BP 125/83; PULSE 67; RESP 17; TEMP 36.6; O2SAT 97
--- NOTE | 2024-01-13 11:00 | ED_ITS ---
HPI - URI/Sore Throat General Chief Complaint: Upper Respiratory Infection Stated Complaint: cough Time Seen by Provider: 01/13/24 11:00 Source: patient, RN notes reviewed and old records reviewed Mode of arrival: ambulatory Limitations: no limitations History of Present Illness HPI Narrative: 73-year-old male presents to the [facility] with complaints of a continued cough. Coughing worse at night. Patient reports states had a cough for at least 6 weeks. Has had around of and amoxicillin as well as 2 rounds of azithromycin since the 12 of December. Patient's is very concerned that he might have pneumonia. Did have an x-ray early December. Patient just finished his azithromycin yesterday. Patient reports that he does use CPAP. States he has had some sinus issue since having COVID in October. Onset (ago): week(s) (6) Related Data Home Medications Medication Instructions Recorded Confirmed fexofenadine 180 mg tablet 180 mg PO DAILY 09/20/23 01/13/24 (Barb Allergy) Allergies Allergy/AdvReac Type Severity Reaction Status Date / Time mercury (elemental) AdvReac Intermediate Rash Verified 01/13/24 10:44 Review of Systems Review of Systems: All systems reviewed & are unremarkable except as noted in HPI and below Constitutional: Constitutional: Reports no additional constitutional complaints ENT: Reports as per HPI Cardiovascular: Cardiovascular: Reports no additional cardiovascular complaints, Denies chest pain and Denies dyspnea Respiratory: Respiratory: Reports as per HPI, Reports chest congestion, Reports cough and Denies dyspnea Gastrointestinal: Gastrointestinal: Reports no additional gastrointestinal complaints, Denies abdominal pain, Denies nausea and Denies vomiting Musculoskeletal: Musculoskeletal: Reports no additional musculoskeletal complaints Integumentary/Breasts: Skin/Breast: Reports system reviewed and no additional complaints, except as docu PMFSH Past Medical History Medical History Body mass index [BMI] 39.0-39.9, adult (12/30/16) Body mass index [BMI] 40.0-44.9, adult (03/22/17) Cough Cough with congestion of paranasal sinus Dependence on other enabling machines and devices GARZA (dyspnea on exertion) Dyslipidemia Dysuria Encounter for screening colonoscopy HTN (hypertension), benign Hyperglycemia Mixed hyperlipidemia Moderate single current episode of major depressive disorder Morbid obesity with BMI of 40.0-44.9, adult JAEL on CPAP Screening PSA (prostate specific antigen) Sinusitis Viral syndrome Wheezing Surgical History Surgical History H/O inguinal hernia repair 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 Family History Family History Father Family history of malignant neoplasm, Onset Age: 75 Alcoholism Mother Family history of kidney disease Family history of chronic obstructive pulmonary disease Sibling Family history of psoriatic arthritis Grandparent Heart disease Social History Social History Social History: quite 20 years ago Smoking status: Never smoker Second hand tobacco smoke exposure: No Alcohol intake: current Substance use: never Substance use type: does not use Current Housing: Decline to Answer Concerned About Future Housing: Decline to Answer Difficulty Paying Gas/Electric Bills: Decline to Answer Difficulty Paying for Meds: Decline to Answer Currently Unemployed: Decline to Answer Education: Decline to Answer Difficulty w/ Childcare or Family Care: Decline to Answer Living arrangements: with family Gender identity (if verbalized by the patient): Male Spiritual care concerns: No Agree to blood products: Yes Comments At the time of my signature, I reviewed and agree with the nursing past medical, surgical, social, and family history. There is no relevant family history pertinent to the patient complaint. Exam Const: General: cooperative, healthy appearing, comfortable, no acute distress, well developed, alert and well nourished Nutritional Appearance: well nourished and obese Orientation/consciousness: patient oriented x3 Limitations: no limitations HENMT: Head: normal to inspection Ears: hearing grossly normal bilaterally, external ears normal, TM's normal bilaterally, EAC's normal, mastoids normal and no periauricular adenopathy Face/Nose/Sinus: Normal external nose present, normal facial exam and face symmetric Face and sinus: normal facial exam, sinuses nontender and face symmetric Mouth: Yes Normal oral and palatal mucosa present, Yes lip normal and Yes tongue normal Throat: uvula midline, postnasal drainage and no uvular edema Eyes: General: appearance normal, both eyes and all related structures Alignment and Position: alignment normal Periorbital: periorbital findings normal Neck: Neck: normal visual inspection, full ROM, no lymphadenopathy and no meningeal signs Chest: Chest palpation & inspection: normal inspection of the chest Resp: Effort & Inspection: normal respiratory effort and able to speak in complete sentences Auscultation: clear to auscultation bilaterally, no crackles, no rales, no rhonchi and wheezes expiratory wheezes and scattered wheezes Cardio: Rate: regular rate Skin: General skin exam: normal color and no rashes or lesions noted Lesions: no lesions Rashes: no rashes Wounds: no wounds Neuro: General: patient oriented x3, gait normal, tone normal, moves all extremities and no meningeal signs Cognition (Neuro): normal cognition Speech: normal speech Gait exam (Neuro): Normal gait present Extrem: General: normal to inspection, full ROM, capillary refill normal and normal gait Psych: Appearance: grossly normal and well kempt Mental Status: mental status grossly normal Speech and movement: Normal speech and movement present and Clear speech present Affect: normal affect Attitude: cooperative Course Course Level of Care: [facility] Visit Vital Signs Vital signs: Vital Signs Temperature 97.8 F 01/13/24 10:36 Pulse Rate 67 01/13/24 10:36 Respiratory Rate 17 01/13/24 10:36 Blood Pressure 125/83 01/13/24 10:36 Pulse Oximetry 97 01/13/24 10:36 Oxygen Delivery Room Air 01/13/24 10:36 Temperature 97.8 F 01/13/24 10:36 Pulse Rate 67 01/13/24 10:36 Respiratory Rate 17 01/13/24 10:36 Blood Pressure 125/83 01/13/24 10:36 Pulse Oximetry 97 01/13/24 10:36 Oxygen Delivery Room Air 01/13/24 10:36 Reviewed MDM - URI/Sore Throat MDM Narrative Medical decision making narrative: Patient presents with . Patient sitting comfortably in exam room. Nontoxic, vitals stable. Patient presents with continued cough. Reports that he did call his primary, never saw his primary and was prescribed some azithromycin. Finished yesterday, states that he is not any better. is verbalizing that she is very concerned that he might pneumonia. Chest x-ray showed no acute abnormalities. Discussed chronic bronchitis, long COVID with patient and . Discussed using inhaler, prescribed Stressed the importance of following up with his primary care provider for further evaluation. Discharge instructions reviewed with patient, as well as provided in writing per nursing staff. The instructions also include specific and strict return/GO TO THE ER as well as f/u information. All questions have been answered, and the patient deny any further questions with discharge and discharge plan. Some parts of this dictation were generated by voice recognition software and may contain typographical and/or grammatical inaccuracies. Differential Diagnosis Differential diagnosis: Likely upper respiratory infection, otitis media, sinusitis, viral infection and bronchitis Imaging Data Radiologist's impression: EXAMINATION: XR chest 2V DATE: 01/13/2024 11:19 INDICATION: Productive cough. TECHNIQUE: Frontal and lateral views of the chest were obtained. COMPARISON: Chest 2 views 12/19/2023, chest CT 08/16/2019 FINDINGS: There is no pneumonia, pleural effusion, or pneumothorax. The heart size is normal. IMPRESSION: 1. No acute cardiopulmonary disease. Critical Care Time Critical Care Time Critical Care Time: No Discharge Plan Discharge Clinical Impression: Cough, PND (post-nasal drip), Bronchitis Patient Disposition: Home, Self-Care Condition: Stable Instructions: Antibiotic Form, Acute Bronchitis (ED), Postnasal Drip (DC) Additional Instructions: Your x-ray did not show signs of pneumonia -Alternate Tylenol and Motrin per package directions for fever or pain. -Antihistamine medication such as Benadryl at night and Zyrtec/Claritin/Barb during the day can help improve symptoms. -doing daily nasal irrigations can help relieve pressure your sinuses. Things like a Neti pot -Use Flonase twice a day for 5 days then daily to help reduce the inflammation and dry up your sinuses. -You can also use Mucinex. Be sure to drink plenty of water with best medication at least 8 ounces with every dose and it is important to drink 8 to 10 glasses of water per day. Water is a natural decongestant -Eat and drink things that are easy to swallow, like tea or soup, or popsicles. -Oral rinses such as: Salt water gargles and/or may use topical anesthetic (eg. Chloraseptic spray) or lozenges to relieve dryness or throat pain). -Frequent hand washing or hand development administrator is one of the best ways to prevent spread of infection. -Using a vaporizer or humidifier at night will also help thin secretions and help with coughing up phlegm. -Follow up with primary care provider in 3-5 days if condition is not improving - For new or worsening symptoms go directly to the nearest ER Patient Language: Ukrainian Prescriptions: New albuterol sulfate 90 mcg/actuation HFA aerosol inhaler 2 puff inhalation TID PRN (Reason: shortness of breath or wheezing) Qty: 6.7 0RF No Action fexofenadine [Barb Allergy] 180 mg tablet 180 mg PO DAILY cholecalciferol (vitamin D3) 50 mcg (2,000 unit) capsule 100 mcg PO DAILY Qty: 180 2RF metoprolol succinate 25 mg tablet extended release 24 hr See Rx Instructions .ROUTE .COMPLEX Qty: 90 2RF Dose Instruction: TAKE 1 TABLET BY MOUTH DAILY Rx Instructions: TAKE 1 TABLET BY MOUTH DAILY fluticasone propionate 50 mcg/actuation spray,suspension See Rx Instructions .ROUTE .COMPLEX Qty: 48 3RF Dose Instruction: SHAKE LIQUID WELL AND USE 1 SPRAY IN EACH NOSTRIL EVERY DAY Rx Instructions: SHAKE LIQUID WELL AND USE 1 SPRAY IN EACH NOSTRIL EVERY DAY ezetimibe 10 mg tablet See Rx Instructions .ROUTE .COMPLEX Qty: 90 2RF Dose Instruction: TAKE 1 TABLET BY MOUTH DAILY Rx Instructions: TAKE 1 TABLET BY MOUTH DAILY tadalafil 5 mg tablet See Rx Instructions .ROUTE .COMPLEX Qty: 90 2RF Dose Instruction: Take 1 tablet by mouth once daily Rx Instructions: Take 1 tablet by mouth once daily Follow-up/Referrals: Nestor Pulido MD [Primary Care Provider] - 1 Week ([facility] follow-up) Time of Disposition: 11:33
== END 2024-01-13 11:42 | disposition home or self-care (01) ==
PROVIDERS: Emergency Provider Nurse Practitioner; PCP Emergency Medicine
DX: R05.9 Cough, unspecified (principal); R09.82 Postnasal drip; J40 Bronchitis, not specified as acute or chronic; I10 Essential (primary) hypertension; E78.2 Mixed hyperlipidemia; E66.01 Morbid (severe) obesity due to excess calories; Z68.37 Body mass index [BMI] 37.0-37.9, adult; G47.33 Obstructive sleep apnea (adult) (pediatric); Z98.84 Bariatric surgery status
CPT/HCPCS: 71046; 99213; G0463

== ENCOUNTER 2024-01-23 09:16 | Outpatient (CLI) | payer MEDICARE, SELFPAY ==
--- NOTE | ~2024-01-23 | CT_ITS ---
CT sinus wo con Ordering provider: Nestor Pulido MD History: . R09.81 - Nasal congestion . Comparison: None. Technique: Thin slice Scans CT of the paranasal sinuses was performed with coronal and sagittal refor matted images. No IV contrast. . Automated exposure control and iterative reconstruction technique w ere employed. The dose-length product was 273.81 mGy-cm. Findings: NASAL SEPTUM: Mild right nasal septal deviation. OSTEOMEATAL UNITS: OBLITERATED on the left side. NASAL TURBINATES AND NASOPHARYNX: Normal. Harriett bullosa in the left middle turbinate. PARANASAL SINUSES: Bilateral ethmoid sinus is seen. Left maxillary sinus disease. VISUALIZED MASTOIDS: Normal as visualized. BONES: Normal. SUPERFICIAL SOFT TISSUES/VISUALIZED BRAIN PARENCHYMA: Normal. IMPRESSION: Ethmoid and left maxillary sinus disease. Obliterated left ostiomeatal complex. Reviewed, dictated and finalized at location A. PUMPER
== END 2024-01-23 09:17 | disposition home or self-care (01) ==
LOC: MICIMG 09:17
PROVIDERS: PCP Emergency Medicine; Visit Provider Emergency Medicine
DX: J32.2 Chronic ethmoidal sinusitis (principal); J32.0 Chronic maxillary sinusitis; J34.89 Other specified disorders of nose and nasal sinuses
CPT/HCPCS: 70486

== ENCOUNTER 2024-04-19 10:06 | Emergency (ER) | payer MEDICARE, SELFPAY ==
--- NOTE | 2024-04-19 10:10 | ED_ITS ---
HPI - URI/Sore Throat General Chief Complaint: Upper Respiratory Infection Stated Complaint: flu symptoms Time Seen by Provider: 04/19/24 10:10 Source: patient Mode of arrival: ambulatory Limitations: no limitations History of Present Illness HPI Narrative: Patient is a 74-year-old male who presents with fever, body aches and cough that started yesterday. Patient states his fever at its highest was 103. Denies any sore throat, ear pain, nausea, vomiting, diarrhea. 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 Patient is taking cough medicine and Tylenol Related Data Home Medications ?Medication ?Instructions ?Recorded ?Confirmed ?Last Taken ?Type fexofenadine 180 mg tablet 180 mg PO DAILY 09/20/23 03/27/24 Unknown History (Barb Allergy) Allergies Allergy/AdvReac Type Severity Reaction Status Date / Time mercury (elemental) Allergy Intermediate Rash Verified 04/19/24 10:22 anchovy Allergy Mild Rash Uncoded 04/19/24 10:29 Review of Systems Review of Systems: All systems reviewed & are unremarkable except as noted in HPI and below Constitutional: Constitutional: Reports body ache(s), Denies chills, Denies fatigue, Reports fever(s), Denies headache(s), Denies malaise and Denies weakness Eyes: Eyes: Denies blurry vision, Denies itchy eyes and Denies loss of vision ENT: Denies otalgia, Denies headache(s), Denies nasal congestion, Denies sinus pain and Denies sore throat Cardiovascular: Cardiovascular: Denies chest pain, Denies irregular heart rhythm and Denies dyspnea Respiratory: Respiratory: Reports cough and Denies dyspnea Gastrointestinal: Gastrointestinal: Denies abdominal pain, Denies diarrhea, Denies nausea and Denies vomiting Musculoskeletal: Musculoskeletal: Denies back pain, Denies myalgias and Denies arthralgias Integumentary/Breasts: Skin/Breast: Denies pruritus and Denies rash Neurologic: Denies headache(s), Denies loss of vision and Denies weakness Psychiatric: Psychiatric: Reports no additional psychiatric complaints Endocrine: Endocrine: Denies fatigue Allergic/Immunologic: Allergic/Immunologic: Denies itchy eyes PMFSH Past Medical History Medical History Skin lesion of foot Nasal obstruction Sinusitis chronic, frontal COVID-19 Respiratory tract congestion with cough Pneumonia Dyspnea Body mass index [BMI] 39.0-39.9, adult (12/30/16) Body mass index [BMI] 40.0-44.9, adult (03/22/17) Cough Cough with congestion of paranasal sinus GARZA (dyspnea on exertion) Dependence on other enabling machines and devices Dyslipidemia Dysuria Encounter for screening colonoscopy Morbid obesity with BMI of 40.0-44.9, adult Viral syndrome Wheezing Sinusitis Screening PSA (prostate specific antigen) Close exposure to 2019 novel coronavirus HTN (hypertension), benign Hyperglycemia Mixed hyperlipidemia Moderate single current episode of major depressive disorder JAEL on CPAP Surgical History Surgical History 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 H/O inguinal hernia repair Family History Family History Father Family history of malignant neoplasm, Onset Age: 75 Alcoholism Mother Family history of kidney disease Family history of chronic obstructive pulmonary disease Sibling Family history of psoriatic arthritis Grandparent Heart disease Social History Social History Social History: quite 20 years ago Smoking status: Never smoker Second hand tobacco smoke exposure: No Alcohol intake: current Substance use: never Substance use type: does not use Do You Feel Safe in your Home?: Yes Lack of Transportation: No Lack of Food: Never True Current Housing: I Have Housing Concerned About Future Housing: No Difficulty Paying Gas/Electric Bills: No Difficulty Paying for Meds: No Currently Unemployed: No Education: Trade/Vocational Certificate Difficulty w/ Childcare or Family Care: No Living arrangements: with family Gender identity (if verbalized by the patient): Male Spiritual care concerns: No Agree to blood products: Yes Comments At time of signature, agree with nursing past medical, surgical, social and family history. There is no relevant family history pertinent to the presenting complaint. Exam Const: General: cooperative, healthy appearing, comfortable, no acute distress and well nourished Nutritional Appearance: well nourished Orientation/consciousness: patient oriented x3 Limitations: no limitations HENMT: Head: normal to inspection, normocephalic and atraumatic Ears: hearing grossly normal bilaterally, external ears normal, TM's normal bilaterally, EAC's normal and no periauricular adenopathy Face/Nose/Sinus: Normal external nose present, Abnormal mucous membranes and turbinates present erythematous bilateral and diffuse, normal facial exam, sinuses nontender and face symmetric Face and sinus: normal facial exam, sinuses nontender and face symmetric Mouth: Yes Normal oral and palatal mucosa present, Yes lip normal, Yes tongue normal, Yes Normal salivary glands and ducts present, Yes oropharynx normal and Yes moist mucous membranes Teeth and gingiva: dentition normal Throat: posterior oropharynx normal, tonsils normal and uvula midline Eyes: General: appearance normal, both eyes and all related structures Alignment and Position: alignment normal and position normal Periorbital: periorbital findings normal Eyelids: eyelids normal Pupils: Equal, round and reactive pupils present Neck: Neck: normal visual inspection, full ROM, no lymphadenopathy and supple Chest: Chest palpation & inspection: normal inspection of the chest and normal palpation of entire chest wall Resp: Effort & Inspection: normal respiratory effort and able to speak in complete sentences Auscultation: no crackles, no rales, no rhonchi and wheezes inspiratory wheezes, scattered wheezes and throughout Cardio: Rate: regular rate Rhythm: regular rhythm Heart sounds: S1 normal heart sound present and S2 normal heart sound present GI: Inspection: normal to inspection Skin: General skin exam: normal color and no rashes or lesions noted Neuro: General: patient oriented x3 and moves all extremities Cranial nerves: Yes Equal, round and reactive pupils present Speech: normal speech Gait exam (Neuro): Normal gait present Extrem: General: normal to inspection, full ROM and no edema Psych: Appearance: grossly normal and well kempt Mental Status: mental status grossly normal Speech and movement: Normal speech and movement present Affect: normal affect Attitude: cooperative Thought process: Normal thought process present Course Course Emergency Course: Discharge instructions reviewed with patient, as well as provided in writing per nursing staff. The instructions also include specific and strict return/GO TO THE ER as well as f/u information. All questions have been answered, and the patient deny any further questions with discharge and discharge plan. Portions of this record may have been created with voice recognition software Level of Care: Express Care Visit Vital Signs Vital signs: Vital Signs Temperature 37.0 C 04/19/24 10:17 Pulse Rate 80 04/19/24 10:17 Respiratory Rate 18 04/19/24 10:17 Blood Pressure 133/78 04/19/24 10:17 Pulse Oximetry 96 04/19/24 10:17 Oxygen Delivery Room Air 04/19/24 10:17 Temperature 37.0 C 04/19/24 10:17 Pulse Rate 80 04/19/24 10:17 Respiratory Rate 18 04/19/24 10:17 Blood Pressure 133/78 04/19/24 10:17 Pulse Oximetry 96 04/19/24 10:17 Oxygen Delivery Room Air 04/19/24 10:17 Reviewed MDM - URI/Sore Throat MDM Narrative Medical decision making narrative: Pt well hydrated appearing, in no respiratory distress, hemodynamically stable. Recommend supportive care. The patient is stable at time of discharge the clinical impression was discussed and the patient was given the opportunity to ask questions, which were addressed as completely as possible given the information available at present. Anticipatory guidance and return to care precautions were discussed and the importance of primary care follow-up was stressed and encouraged. The patient voiced understanding of the plan, indications to return, and the need for follow-up. Differential diagnosis considered: Arreaga virus, strep pharyngitis, allergic rhinitis, upper respiratory tract infection, sinusitis, rhinosinusitis, nasopharyngitis. viral pharyngitis, otitis media, otitis externa, otitis effusion, foreign body, cerumen impaction, viral syndrome, and influenza.? Exam findings show no acute concerns or changes; patient is non-toxic appearing and is in no distress.? Patient is appropriate for outpatient treatment and follow- up.? Medical Records Attestation: I reviewed the patient's medical records. Lab Data Attestation: I reviewed the patient's lab results. Labs: Lab Results 04/19/24 Range/Units 10:43 POC Influenza A Ag Positive (Negative) POC Influenza B Ag Negative (Negative) POC SARS CoV-2 Ag Negative (Negative) Discharge Plan Discharge Clinical Impression: Influenza Patient Disposition: Home, Self-Care Condition: Stable Instructions: Influenza (ED) Additional Instructions: Were positive for influenza A. Your Covid is negative Your symptoms are due to a viral illness, which is not treated with antibiotics. Viral symptoms can be present for up to a few weeks. -For fever/pain, you may take: Tylenol 650-1000mg by mouth every 4-6 hours. Do not exceed 4000mg in 24 hours. Advil (Ibuprofen) 600 mg by mouth every 6 hours. Do not exceed 2400mg in 24 hours. 8 AM: Tylenol 11 AM: Ibuprofen 2 PM: Tylenol 5 PM: Ibuprofen 8 PM: Tylenol 11 PM: Ibuprofen 2 AM: Tylenol 5 AM: Ibuprofen -Antihistamine medication such as Benadryl/Zyrtec at night and Claritin/Barb during the day can help improve symptoms. -Use Flonase twice a day for 5 days then daily to help reduce the inflammation and dry up your sinuses. -You can also use Sudafed behind the pharmacy counter(12 or 24 hour). Be sure to drink plenty of water with these medications at least 8 ounces with every dose and it is important to drink 8 to 10 glasses of water per day. Water is a natural decongestant -Eat and drink things that are easy to swallow, like tea or soup, or popsicles. -Oral rinses such as: Salt water gargles and/or may use topical anesthetic (eg. Chloraseptic spray) or lozenges to relieve dryness or throat pain). -Frequent hand washing or hand land resource specialist is one of the best ways to prevent spread of infection. -Using a vaporizer or humidifier at night will also help thin secretions and help with coughing up phlegm. -Follow up with primary care provider in 3-5 days if condition is not improving - For new or worsening symptoms go directly to the nearest ER Patient Language: German Prescriptions: New oseltamivir [Tamiflu] 75 mg capsule 75 mg PO Q12H 5 Days Qty: 10 0RF No Action albuterol sulfate 90 mcg/actuation HFA aerosol inhaler 2 puff inhalation TID PRN (Reason: shortness of breath or wheezing) Qty: 6.7 0RF fexofenadine [Barb Allergy] 180 mg tablet 180 mg PO DAILY cholecalciferol (vitamin D3) 50 mcg (2,000 unit) capsule 100 mcg PO DAILY Qty: 180 2RF pantoprazole [Protonix] 20 mg tablet,delayed release (DR/EC) 20 mg PO BID Qty: 60 3RF Rx Instructions: take 1 tablet b.i.d. on empty stomach and wait 15-30 minutes to eat or drink ezetimibe 10 mg tablet See Rx Instructions .ROUTE .COMPLEX Qty: 90 2RF Dose Instruction: TAKE 1 TABLET BY MOUTH DAILY Rx Instructions: TAKE 1 TABLET BY MOUTH DAILY tadalafil 5 mg tablet See Rx Instructions .ROUTE .COMPLEX Qty: 90 2RF Dose Instruction: Take 1 tablet by mouth once daily Rx Instructions: Take 1 tablet by mouth once daily hydrochlorothiazide 12.5 mg tablet 12.5 mg PO DAILY Qty: 90 3RF azelastine 137 mcg (0.1 %) spray,non-aerosol 1 spray intranasal Q12H Qty: 30 0RF Rx Instructions: administer into each nostril metoprolol succinate 25 mg tablet extended release 24 hr See Rx Instructions .ROUTE .COMPLEX Qty: 90 2RF Dose Instruction: TAKE 1 TABLET BY MOUTH DAILY Rx Instructions: TAKE 1 TABLET BY MOUTH DAILY Follow-up/Referrals: Nestor Pulido MD [Primary Care Provider] - 3 Days Stand Alone Forms: Work/School Release IP Time of Disposition: 10:43
[2024-04-19 10:17] VITALS: BP 133/78; PULSE 80; RESP 18; TEMP 37; O2SAT 96
--- OUTSIDE RECORDS SUMMARY | 2024-04-19 10:32 | XMS_ITS | Continuity of Care Document ---
Author Name [employer] Organization [employer] Care Team Providers Care Account Service Associate Name Role Phone [employer] Unavailable Unavailable Problems Combined list of problems from Department of [facility] and [facility] facilities. It does not include entries that were removed or entered in error. Problem Status Onset Date Problem Type Date of Resolution Comments Source Chronic sinusitis Active Condition [facility] Essential hypertension Active Condition [facility] Hyperlipidemia Active Condition [facility] Obesity Active Condition [facility] Weak urinary stream due to benign prostatic hypertrophy Active Condition [facility] Medications Combined list of outpatient medications from Department of [facility] and [facility] facilities.Medications provided include 1) outpatient medications from the last 15 months, and 2) patient-reported medications. Medication Details Route Status Patient Instructions Prescription Expires Prescription Number Last Dispense Date Ordering Provider Order Date Order Qty Source EZETIMIBE 10MG TAB TAKE ONE TABLET BY MOUTH ONCE A DAY ORAL ACTIVE EVY MOTTA 2021 [facility] FLUTICASONE PROPIONATE 50MCG/SPRAY SOLN,NASAL, 16GM INSTILL 1 SPRAY IN NOSTRIL( S) ONCE A DAY NASAL EVY MENDOZA 2021 [facility] HYDROCHLORO THIAZIDE 25MG TAB TAKE ONE-HALF TABLET BY MOUTH ONCE A DAY ORAL ACTIVE EVY MOTTA 2021 [facility] LORATADINE 10MG TAB TAKE ONE TABLET BY MOUTH ONCE A DAY ORAL ACTIVE EVY MOTTA 2021 [facility] METOPROLOL SUCCINATE 50MG TAB,SA TAKE ONE-HALF TABLET BY MOUTH ONCE A DAY ORAL ACTIVE EVY MOTTA 2021 [facility] TADALAFIL 5MG TAB TAKE ONE TABLET BY MOUTH ONCE A DAY ORAL ACTIVE EVY MOTTA 2021 [facility] Allergies, Adverse Reactions, Alerts Combined list of allergies from Department of Defense and [facility] facilities. It does not include entries that were removed or entered in error. Substance Category Reaction Severity Reaction type Status Date Reported Comments Source EMELY,AMM ONIATED Propensity to adverse reactions to drug (finding) Burning sensation active [facility] Immunizations Combined list of available immunizations from the [facility] and [facility] facilities. Immunization Series Date Given Administered By Site Reaction Lot Number CVX Code Drug Career And Transition Teacher Status Comments Source COVID-19 (Ansible), MRNA, LNP-S, PF, 30 MCG/0.3 ML DOSE 3 2020 208 complet ed [facility] INFLUENZA, UNSPECIFIED FORMULATION 2020 88 complet ed [facility] COVID-19 (PFIZER), MRNA, LNP-S, PF, 30 MCG/0.3 ML DOSE 2 2020 208 complet ed [facility] COVID-19 (Ansible), MRNA, LNP-S, PF, 30 MCG/0.3 ML DOSE 1 2020 208 complet ed [facility] Social History Combined list of available smoking, tobacco, and other social history from [facility] and [facility] facilities. Social History Type Response Date Comment Sourc e Tobacco smoking status NHIS VA-TOBACCO FORMER USER 05/20/2021 [facility] History of tobacco use GA-TOBACCO QUIT 1 5 YRS OR MORE 05/20/2021 [facility]
--- OUTSIDE RECORDS SUMMARY | 2024-04-19 10:32 | XMS_ITS | CONTINUITY OF CARE DOCUMENT ---
Author Name pilar quezada Address Unknown Organization [facility] Address [id number] [place] [address] [address] [place] [address] Phone [phone] Care Team Providers Care Sander And Buffer Name Role Phone Ning NARAYANAN, Jose Mccann Unavailable [phone] TAI CAPELLAN MD Unavailable [phone] TAI CAPELLAN MD Unavailable [phone] INSURANCE PROVIDERS Payer name Policy type / Coverage type Elberta red green party ID [employer]UR[employer] Commercial insurance [employer] [id number] [place] PART B Medicare [id number]
--- OUTSIDE RECORDS SUMMARY | 2024-04-19 10:32 | XMS_ITS | Clinical Summary ---
Author Organization [facility] Address [address] [place] [address] Care Team Providers Care Brand Ambassador Name Role Phone Jose Moreira MD Primary Care Provider Source Comments [facility],non-[facility] Affiliates and Associated Physician Practices is amultiple site organization consisting of ambulatory clinics and hospital sitesin [place], [place], [place] and [place]. This disclosure is being madepursuant to the Care Everywhere program and may not contain all information available regarding this patient. Last updated 17.[facility] [employer] Social History Tobacco Use Types Packs/Day Years Used Date Smoking Tobacco: Never Assessed Sex and Gender Information Value Date Recorded Sex Assigned at Not on file Gender Identity Not on file Sexual Orientation Not on file Plan of Treatment Health Maintenance Due Date Last Done Comments COLOGUARD (AGES 45-75) - COL ON CA SCREENING 1952 COLON MONITORING 1952 COLONOSCOPY - COLON CA SCREENING 1952 CT COLONOGRAPHY - COLON CA SCREENING 1952 Colorectal Cancer Screening 1952 FIT - COLON CA SCREENING 1952 FLEX SIG - COLON CA SCREENING 1952 LIPID TESTING 1952 HEPATITIS C SCREENING 02/27/1970 DTAP/TDAP/TD VACCINES (1 - Tdap) 1971 PNEUMOCOCCAL VACCINE 50+ (1 of 1 - PCV) 2002 ZOSTER VACCINE (1 of 2) 2002 COVID-19 VACCINE ( - 2023-2 5 season) 2023 INFLUENZA VACCINE (#1) 2023 DEPRESSION SCREENING 03/14/2024 Respiratory Syncytial Virus (RSV) Vaccine Pt: or over 60 yrs (1 - 1-dose 75+ series) 2027 HEPATITIS B VACCINE Aged Out No longe r eligible based on patient's age to complete this topic HIB VACCINE Aged Out No longer eligi ble based on patient's age to complete this topic HPV VACCINE Aged Out No longer eligi ble based on patient's age to complete this topic MENINGOCOCCAL (Group B) VACCINE Aged Out No longer eligible based on patient's age to complete this topic MENINGOCOCCAL VACCINE Aged Out No kinsey gian eligible based on patient's age to complete this topic Care Teams Brand Ambassador Relationship Specialty Start Date End Date Jose Moreira MD [address] [place] [address] [place] [id number] PCP - General 01/01/09
--- OUTSIDE RECORDS SUMMARY | 2024-04-19 10:32 | XMS_ITS | Clinical Summary ---
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 Gender Identity Not on file Sexual Orientation Not on file Plan of Treatment Health Maintenance Due Date Last Done Comments Colorectal Cancer Screening Colonoscopy (10 Years) 1952 PHQ-2 ([facility]) 1964 Hepatitis C 1970 DTaP, Tdap and Td Vaccines (1 - Tdap) 1971 Zoster Vaccines (1 of 2) 2002 Annual Medicare Wellness Visit 2017 Pneumococcal Vaccine: 65+ Years (1 of 1 - PCV) 2017 COVID-19 Vaccine ( season) 2023 10/05/2021, 02/07/2021, 06/01/2020, Additional history exists Influenza Adult (#1) 2023 12/16/2017, 12/29/2016, 02/17/2015 PHQ-2 ([facility]) 03/14/2024 RSV Immunization or 60+ Years (1 - 1-dose 75+ series) 2027 Meningococcal B Vaccine Aged Out No l onger eligible based on patient's age to complete this topic Meningococcal Vaccine Aged Out No kinsey gian eligible based on patient's age to complete this topic RSV Immunizations Under 20 Months Aged Out No longer eligible based on patient's age to complete this topic Insurance
--- OUTSIDE RECORDS SUMMARY | 2024-04-19 10:32 | XMS_ITS | Referral Summary ---
Author Organization [facility] Address [address] [place] [address] Care Team Providers Care Performing Arts Technicians Name Role Phone Jose Moreira MD Primary Care Provider [phone] Source Comments [facility],non-owned Affiliates and Associated Physician Practices is amultiple site organization consisting of ambulatory clinics and hospital sitesin [place], [place], [place] and [place]. This disclosure is being madepursuant to the Care Everywhere program and may not contain all information available regarding this patient. Last updated 17.[facility] Social History Tobacco Use Types Packs/Day Years Used Date Smoking Tobacco: Never Assessed Sex and Gender Information Value Date Recorded Sex Assigned at Not on file Gender Identity Not on file Sexual Orientation Not on file Plan of Treatment Not on file Care Teams Performing Arts Technicians Relationship Specialty Start Date End Date Jose Moreira MD [address] [place] [address] [place] [id number] PCP - General 01/01/09
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
--- OUTSIDE RECORDS SUMMARY | 2024-04-19 10:33 | XMS_ITS | CONTINUITY OF CARE DOCUMENT ---
Author Name pilar quezada Address Unknown Organization [facility] Address [address] [place] [address] [address] [place] [address] Phone [phone] Care Team Providers Care Rail Filler Name Role Phone Ning NARAYANAN, Jose Mccann Unavailable [phone] TAI CAPELLAN MD Unavailable TAI CAPELLAN MD Unavailable [phone] INSURANCE PROVIDERS Payer name Policy type / Coverage type [place] red democrat [place] [employer] INSURANCE Commercial insurance [employer] [id number] [place] MEDICARE PART B Medicare [id number]
[2024-04-19 10:45] LABS: EDCOVIDSCREEN Negative (Negative); EDINFLUASCREEN Positive (Negative); EDINFLUBSCREEN Negative (Negative)
== END 2024-04-19 10:48 | disposition home or self-care (01) ==
PROVIDERS: Emergency Provider Nurse Practitioner Family; PCP Emergency Medicine
DX: J10.1 Influenza due to other identified influenza virus with other respiratory manifestations (principal); Z20.822 Contact with and (suspected) exposure to COVID-19; I10 Essential (primary) hypertension; E78.2 Mixed hyperlipidemia; G47.33 Obstructive sleep apnea (adult) (pediatric); E66.01 Morbid (severe) obesity due to excess calories; Z68.38 Body mass index [BMI] 38.0-38.9, adult; Z98.84 Bariatric surgery status
CPT/HCPCS: 87426; 87804; 99213; G0463

== ENCOUNTER 2024-12-01 08:41 | Emergency (ER) | payer MEDICARE, SELFPAY ==
--- NOTE | 2024-12-01 08:43 | ED.URI ---
HPI - URI/Sore Throat General Chief Complaint: Upper Respiratory Infection Stated Complaint: Cough Time Seen by Provider: 12/01/24 08:46 Source: patient Mode of arrival: ambulatory Limitations: no limitations History of Present Illness HPI Narrative: Jewel is a 74-year-old male patient presenting to the clinic today with complaints of a productive cough with yellow phlegm, sinus pressure, postnasal drip, and scratchy throat x1 month. He does have history of sinusitis/allergies. Denies any known fever or chills. No chest pain or shortness of breath. Has taken Zyrtec for his symptoms. He is a former smoker. 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 Patient denies any fever, chills, rash, visual changes, dizziness, shortness of breath, chest pain, palpitations, nausea, vomiting, diarrhea, constipation, abdominal pain, or any urinary issues. [facility] Past Medical History Medical History Skin lesion of foot Nasal obstruction Sinusitis chronic, frontal COVID-19 Respiratory tract congestion with cough Pneumonia Dyspnea Body mass index [BMI] 39.0-39.9, adult (12/30/16) Body mass index [BMI] 40.0-44.9, adult (03/22/17) Cough Cough with congestion of paranasal sinus GARZA (dyspnea on exertion) Dependence on other enabling machines and devices Dyslipidemia Dysuria Encounter for screening colonoscopy Morbid obesity with BMI of 40.0-44.9, adult Viral syndrome Wheezing Sinusitis Screening PSA (prostate specific antigen) Close exposure to 2019 novel coronavirus HTN (hypertension), benign Hyperglycemia Mixed hyperlipidemia Moderate single current episode of major depressive disorder JAEL on CPAP Surgical History Surgical History 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 H/O inguinal hernia repair Family History Family History Father Family history of malignant neoplasm, Onset Age: 75 Alcoholism Mother Family history of kidney disease Family history of chronic obstructive pulmonary disease Sibling Family history of psoriatic arthritis Grandparent Heart disease Social History Social History Social History: quite 20 years ago Smoking status: Never smoker Second hand tobacco smoke exposure: No Alcohol intake: current Substance use: never Substance use type: does not use Do You Feel Safe in your Home?: Yes Lack of Transportation: No Lack of Food: Never True Current Housing: I Have Housing Concerned About Future Housing: No Difficulty Paying Gas/Electric Bills: No Difficulty Paying for Meds: No Currently Unemployed: No Education: Trade/Vocational Certificate Difficulty w/ Childcare or Family Care: No Living arrangements: with family Gender identity (if verbalized by the patient): Male Spiritual care concerns: No Agree to blood products: Yes Comments At the time of my signature, I reviewed and agree with the nursing past medical, surgical, social, and family history. There is no relevant family history pertinent to the patient complaint. Exam Narrative: General: Well-developed, obese, in no apparent distress Head: Normocephalic, atraumatic Eyes: Pupils equally round and reactive to light bilaterally, EOM intact, sclera and conjunctive clear, no discharge, lids normal Ears: TMs intact and clear, ear canals clear, no drainage, grossly hearing normal. Nose: Nares patent, yellow nasal discharge, moderate inflammation, maxillary and frontal sinus tenderness. Mouth: Oral pharynx red without lesions or masses, good dentition, MMM. Postnasal drip Neck: Supple, trachea midline, no enlargement of anterior or posterior cervical nodes, no thyroid masses or goiter palpable. Cardio: Regular rate and rhythm, s1 and s2 normal, no murmur appreciated. Resp: Clear to auscultation bilaterally, no rhonchi, rales, wheezing or rubs Course Course Emergency Course: Portions of this record may have been created with voice recognition software. Level of Care: Express Care Visit Vital Signs Vital signs: Vital Signs Temperature 36.4 C L 12/01/24 08:48 Pulse Rate 73 12/01/24 08:48 Respiratory Rate 18 12/01/24 08:48 Blood Pressure 129/73 12/01/24 08:48 Pulse Oximetry 99 12/01/24 08:48 Oxygen Delivery Room Air 12/01/24 08:48 Temperature 36.4 C L 12/01/24 08:48 Pulse Rate 73 12/01/24 08:48 Respiratory Rate 18 12/01/24 08:48 Blood Pressure 129/73 12/01/24 08:48 Pulse Oximetry 99 12/01/24 08:48 Oxygen Delivery Room Air 12/01/24 08:48 Vital signs reviewed MDM - URI/Sore Throat MDM Narrative Medical decision making narrative: At the time of visit patient is resting comfortably on the exam table. Patient appears to be nontoxic. Complaints of a nagging productive cough with yellow phlegm, sinus pressure, postnasal drip, and scratchy throat x1 month. He does have history of sinusitis/allergies. Denies any known fever or chills. No chest pain or shortness of breath. Has pain and pressure over the frontal and maxillary sinuses. Has taken Zyrtec for his symptoms. He is a former smoker. 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 On exam patient has red oropharynx with postnasal drip, bilateral TMs clear and intact, tenderness to palpation over the maxillary and frontal sinuses with moderate inflammation to the anterior turbinates, lung sounds clear, heart rates regular rate rhythm. Plan: I suspect patient has acute bacterial maxillary and frontal sinusitis. Prescriptions for Augmentin and prednisone was sent to the pharmacy. Supportive measures were discussed with the patient and they voiced understanding discharge instructions and agrees to treatment plan. Return precautions reviewed Differential Diagnosis Differential diagnosis: Likely upper respiratory infection, otitis media, sinusitis, viral infection, bronchitis, influenza, pharyngitis and other (COVID) Discharge Plan Discharge Clinical Impression: Acute bacterial rhinosinusitis Patient Disposition: Home Condition: Stable Instructions: Antibiotic Form, Rhinosinusitis (ED) Additional Instructions: Take prescription medications only as prescribed-prednisone and Augmentin Increase fluids and stay well hydrated May take Tylenol or motrin as directed on bottle for pain/fever May use Flonase 1 spray in each nare daily May take OTC antihistamines such as Zyrtec or Claritin daily as directed on bottle May apply Vicks vapor rub to chest to open sinuses Sinus rinses for congestion Cepacol spray, cough drops, throat lozenges, warm tea with honey/lemon, gargle salt water to soothe throat BRAT diet for diarrhea Clear liquids x 24 hours then advance as tolerated for nausea/vomiting Go to the ED if you develop a worsening in your condition- high fever not controlled by Tylenol or Motrin, dehydration, weakness, lethargy, shortness of breath, or chest pain. Follow up with your PCP in 3-5 days if symptoms persist. Patient Language: Indian Prescriptions: New amoxicillin-pot clavulanate 875-125 mg tablet 1 tablet PO Q12H 10 Days Qty: 20 0RF prednisone 20 mg tablet 40 mg PO DAILY 5 Days Qty: 10 0RF No Action omeprazole 40 mg capsule,delayed release(DR/EC) famotidine 20 mg tablet fexofenadine [Barb Allergy] 180 mg tablet 180 mg PO DAILY cholecalciferol (vitamin D3) 50 mcg (2,000 unit) capsule 100 mcg PO DAILY Qty: 180 2RF hydrochlorothiazide 12.5 mg tablet 12.5 mg PO DAILY Qty: 90 3RF metoprolol succinate 25 mg tablet extended release 24 hr See Rx Instructions .ROUTE .COMPLEX Qty: 90 2RF Dose Instruction: TAKE 1 TABLET BY MOUTH DAILY Rx Instructions: TAKE 1 TABLET BY MOUTH DAILY azelastine 137 mcg (0.1 %) spray,non-aerosol See Rx Instructions .ROUTE .COMPLEX Qty: 30 2RF Dose Instruction: USE 1 SPRAY IN EACH NOSTRIL EVERY 12 HOURS Rx Instructions: USE 1 SPRAY IN EACH NOSTRIL EVERY 12 HOURS ezetimibe 10 mg tablet See Rx Instructions .ROUTE .COMPLEX Qty: 90 2RF Dose Instruction: TAKE 1 TABLET BY MOUTH DAILY Rx Instructions: TAKE 1 TABLET BY MOUTH DAILY tadalafil 5 mg tablet See Rx Instructions .ROUTE .COMPLEX Qty: 90 2RF Dose Instruction: Take 1 tablet by mouth once daily Rx Instructions: Take 1 tablet by mouth once daily Follow-up/Referrals: Nestor Pulido MD [Primary Care Provider, Internal Medicine] Time of Disposition: 08:57 Quality NIHSS Nursing Documentation ED NIHSS nursing documentation: reviewed/agree
--- OUTSIDE RECORDS SUMMARY | 2024-12-01 08:43 | XMS_ITS | Clinical Summary ---
Author Organization [facility] Address [address] [place] [address] Care Team Providers Care Cnc Operator Name Role Phone Jose Moreira MD Primary Care Provider Source Comments [facility],non-owned Affiliates and Associated Physician Practices is amultiple site organization consisting of ambulatory clinics and hospital sitesin [place], [place], [place]. This disclosure is being madepursuant to the Care Everywhere program and may not contain all information available regarding this patient. 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 Gender Identity Not on file Sexual Orientation [...] 2002 ZOSTER VACCINE (1 of 2) 2002 DEPRESSION SCREENING 03/14/2024 COVID-19 VACCINE (1 - 2023-2 5 season) 2024 INFLUENZA VACCINE (#1) 2024 Respiratory Syncytial Virus (RSV) Vaccine Pt: or [...] to complete this topic MENINGOCOCCAL (Group B) VACC INE SHARED DECISION-MAKING Aged Out No longer eligibl e based on patient's age to complete this topic MENINGOCOCCAL GROUPS A/C/Y/W VACCINE Aged Out No longer eligible b ased on patient's age to complete this topic Care Teams Cnc Operator Relationship Specialty Start Date End Date Jose Moreira MD [address] [place] [phone] PCP - General 01/01/09
--- OUTSIDE RECORDS SUMMARY | 2024-12-01 08:43 | XMS_ITS | Patient Health Record ---
Author Organization [facility] Address [address] [place], [place] [id number] Care Team Providers Care Industrial Maintenance Technician Name Role Phone Nestor Pulido Unavailable Unavailable Allergies No Known Allergies Reason For Referral No Information Medications Medication SIG (Take, Route, Frequency, Duration) Notes Start Date End Date Status hydroCHLOROthiazide 12.5 MG Oral; Durati on: 90 Days Active Tadalafil 5 MG TAKE 1 TABLET BY MADDIE TH ONCE DAILY Oral; Duration: 90 Days Active Ezetimibe 10 MG Oral; Duration: 30 Days Active Naproxen 500 MG TAKE 1 TABLET BY MADDIE TH TWICE DAILY FOR 7 DAYS Oral; Duration: 7 Days Active Metoprolol Succinate ER 25 MG TAKE 1 TAB LET BY MOUTH DAILY Oral; Duration: 90 Days Active Plan Of Treatment No Information Insurance Providers Payer Name Payer Address Payer Phone Subscriber Number Group Number Insured Name Patient Relationship to Insured Coverage Start Date Coverage End Date Medicare Part B [place] [address] [place] [address] [id number] CRISTOBAL YOUNG Self - patient is the insured STATE FARM MEDICARE SUPP [address] [place], [place] [id number] CRISTOBAL YOUNG Self - patient is the insured Medical (General) History Medical History History ICD Code neuropathy Arthritis Sleep apnea Back Trouble hypertension
[2024-12-01 08:48] VITALS: BP 129/73; PULSE 73; RESP 18; TEMP 36.4; O2SAT 99
== END 2024-12-01 09:04 | disposition home or self-care (01) ==
PROVIDERS: Emergency Provider Nurse Practitioner Family; PCP Emergency Medicine
DX: J01.90 Acute sinusitis, unspecified (principal); I10 Essential (primary) hypertension; E78.2 Mixed hyperlipidemia; G47.33 Obstructive sleep apnea (adult) (pediatric); E66.01 Morbid (severe) obesity due to excess calories; Z87.891 Personal history of nicotine dependence; Z86.16 Personal history of COVID-19; Z68.37 Body mass index [BMI] 37.0-37.9, adult
CPT/HCPCS: 99213; G0463

== ENCOUNTER 2025-02-03 08:42 | Emergency (ER) | payer MEDICARE, SELFPAY ==
--- NOTE | 2025-02-03 08:46 | ED.URI ---
HPI - URI/Sore Throat General Chief Complaint: Upper Respiratory Infection Stated Complaint: URI Time Seen by Provider: 02/03/25 08:55 Source: patient Mode of arrival: ambulatory Limitations: no limitations History of Present Illness HPI Narrative: Jewel is a 74 year old male patient presenting to the clinic today with c/o runny nose, sinus pressure, yellow nasal drainage, cough, and fatigue x 2 weeks. Has taken dayquil/nyquil for his symptoms without relief. Denies any known fever, chills, body aches, chest pain, or shortness of breath. Related Data Home Medications ?Medication ?Instructions ?Recorded ?Confirmed ?Last Taken ?Type fexofenadine 180 mg tablet 180 mg PO DAILY 09/20/23 09/18/24 Unknown History (Barb Allergy) famotidine 20 mg tablet mg 12/01/24 Unknown History omeprazole 40 mg capsule,delayed mg 12/01/24 Unknown History release Allergies Allergy/AdvReac Type Severity Reaction Status Date / Time mercury (elemental) Allergy Intermediate Rash Verified 02/03/25 08:51 Review of Systems Review of Systems: Pertinent positives per HPI. Patient denies any fever, chills, rash, headache, visual changes, dizziness, shortness of breath, chest pain, palpitations, nausea, vomiting, diarrhea, constipation, abdominal pain, or any urinary issues. [facility] Past Medical History Medical History Skin lesion of foot Nasal obstruction Sinusitis chronic, frontal COVID-19 Respiratory tract congestion with cough Pneumonia Dyspnea Body mass index [BMI] 39.0-39.9, adult (12/30/16) Body mass index [BMI] 40.0-44.9, adult (03/22/17) Cough Cough with congestion of paranasal sinus GARZA (dyspnea on exertion) Dependence on other enabling machines and devices Dyslipidemia Dysuria Encounter for screening colonoscopy Morbid obesity with BMI of 40.0-44.9, adult Viral syndrome Wheezing Sinusitis Screening PSA (prostate specific antigen) Close exposure to 2019 novel coronavirus HTN (hypertension), benign Hyperglycemia Mixed hyperlipidemia Moderate single current episode of major depressive disorder JAEL on CPAP Surgical History Surgical History 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 H/O inguinal hernia repair Family History Family History Father Family history of malignant neoplasm, Onset Age: 75 Alcoholism Mother Family history of kidney disease Family history of chronic obstructive pulmonary disease Sibling Family history of psoriatic arthritis Grandparent Heart disease Social History Social History Social History: quite 20 years ago Smoking status: Never smoker Second hand tobacco smoke exposure: No Alcohol intake: current Substance use: never Substance use type: does not use Do You Feel Safe in your Home?: Yes Lack of Transportation: No Lack of Food: Never True Current Housing: I Have Housing Concerned About Future Housing: No Difficulty Paying Gas/Electric Bills: No Difficulty Paying for Meds: No Currently Unemployed: No Education: Trade/Vocational Certificate Difficulty w/ Childcare or Family Care: No Living arrangements: with family Gender identity (if verbalized by the patient): Male Spiritual care concerns: No Agree to blood products: Yes Comments At the time of my signature, I reviewed and agree with the nursing past medical, surgical, social, and family history. There is no relevant family history pertinent to the patient complaint. Exam Narrative: General: Well-developed, obese, in no apparent distress Head: Normocephalic, atraumatic Eyes: Pupils equally round and reactive to light bilaterally, EOM intact, sclera and conjunctive clear, no discharge, lids normal Ears: TMs intact and congested, ear canals clear, no drainage, grossly hearing normal. Nose: Nares patent, yellow discharge, moderate inflammation, maxillary and frontal sinus tenderness. Mouth: Oral pharynx red without lesions or masses, good dentition, MMM. Postnasal drip Neck: Supple, trachea midline, no enlargement of anterior or posterior cervical nodes, no thyroid masses or goiter palpable. Cardio: Regular rate and rhythm, s1 and s2 normal, no murmur appreciated. Resp: Clear to auscultation bilaterally, no rhonchi, rales, wheezing or rubs Course Course Emergency Course: Portions of this record may have been created with voice recognition software. Level of Care: Express Care Visit Vital Signs Vital signs: Vital Signs Temperature 36.4 C L 02/03/25 08:50 Pulse Rate 73 02/03/25 08:50 Respiratory Rate 18 02/03/25 08:50 Blood Pressure 128/73 02/03/25 08:50 Pulse Oximetry 97 02/03/25 08:50 Oxygen Delivery Room Air 02/03/25 08:50 Temperature 36.4 C L 02/03/25 08:50 Pulse Rate 73 02/03/25 08:50 Respiratory Rate 18 02/03/25 08:50 Blood Pressure 128/73 02/03/25 08:50 Pulse Oximetry 97 02/03/25 08:50 Oxygen Delivery Room Air 02/03/25 08:50 Vital signs reviewed MDM - URI/Sore Throat MDM Narrative Medical decision making narrative: At the time of visit patient is resting comfortably on the exam table. Patient appears to be nontoxic. C/o runny nose, sinus pressure, yellow nasal drainage, cough, and fatigue x 2 weeks. Has taken dayquil/nyquil for his symptoms without relief. Denies any known fever, chills, body aches, chest pain, or shortness of breath. On exam patient has bilateral TMs intact and congested, yellow nasal drainage with moderate anterior turbinate inflammation, maxillary and frontal sinus tenderness, oral pharynx mildly red with postnasal drip, no cervical lymphadenopathy, heart rates regular rate and rhythm, lung sounds are clear. Plan: I suspect patient has sinusitis. Prescription for Augmentin, prednisone, and Tessalon Perles was sent to the pharmacy. Supportive measures were discussed with the patient and they voiced understanding discharge instructions and agrees to treatment plan. Return precautions reviewed Differential Diagnosis Differential diagnosis: Likely upper respiratory infection, otitis media, sinusitis, viral infection, bronchitis, influenza, pharyngitis and other (COVID) Discharge Plan Discharge Clinical Impression: Sinusitis Qualifiers: Sinusitis location: maxillary Chronicity: acute Recurrence: non-recurrent Qualified Code(s): J01.00 - Acute maxillary sinusitis, unspecified Patient Disposition: Home Condition: Stable Instructions: Antibiotic Form, Rhinosinusitis (ED) Additional Instructions: Take prescription medications only as prescribed prednisone, Augmentin, and Tessalon Perles Increase fluids and stay well hydrated May take Tylenol or motrin as directed on bottle for pain/fever May use Flonase 1 spray in each nare daily May take OTC antihistamines such as Zyrtec or Claritin daily as directed on bottle May apply Vicks vapor rub to chest to open sinuses Sinus rinses for congestion Cepacol spray, cough drops, throat lozenges, warm tea with honey/lemon, gargle salt water to soothe throat BRAT diet for diarrhea Clear liquids x 24 hours then advance as tolerated for nausea/vomiting Go to the ED if you develop a worsening in your condition- high fever not controlled by Tylenol or Motrin, dehydration, weakness, lethargy, shortness of breath, or chest pain. Follow up with your PCP in 3-5 days if symptoms persist. Patient Language: Thai Prescriptions: New amoxicillin 875 mg tablet 875 mg PO Q12H 10 Days Qty: 20 0RF prednisone 20 mg tablet 40 mg PO DAILY 5 Days Qty: 10 0RF benzonatate 200 mg capsule 200 mg PO TID 7 Days Qty: 21 0RF No Action omeprazole 40 mg capsule,delayed release(DR/EC) famotidine 20 mg tablet fexofenadine [Barb Allergy] 180 mg tablet 180 mg PO DAILY cholecalciferol (vitamin D3) 50 mcg (2,000 unit) capsule 100 mcg PO DAILY Qty: 180 2RF hydrochlorothiazide 12.5 mg tablet 12.5 mg PO DAILY Qty: 90 3RF azelastine 137 mcg (0.1 %) spray,non-aerosol See Rx Instructions .ROUTE .COMPLEX Qty: 30 2RF Dose Instruction: USE 1 SPRAY IN EACH NOSTRIL EVERY 12 HOURS Rx Instructions: USE 1 SPRAY IN EACH NOSTRIL EVERY 12 HOURS ezetimibe 10 mg tablet See Rx Instructions .ROUTE .COMPLEX Qty: 90 2RF Dose Instruction: TAKE 1 TABLET BY MOUTH DAILY Rx Instructions: TAKE 1 TABLET BY MOUTH DAILY tadalafil 5 mg tablet See Rx Instructions .ROUTE .COMPLEX Qty: 90 2RF Dose Instruction: Take 1 tablet by mouth once daily Rx Instructions: Take 1 tablet by mouth once daily fluticasone propionate 50 mcg/actuation spray,suspension See Rx Instructions .ROUTE .COMPLEX Qty: 48 0RF Dose Instruction: SHAKE LIQUID WELL AND USE 1 SPRAY IN EACH NOSTRIL EVERY DAY Rx Instructions: SHAKE LIQUID WELL AND USE 1 SPRAY IN EACH NOSTRIL EVERY DAY metoprolol succinate 25 mg tablet extended release 24 hr See Rx Instructions .ROUTE .COMPLEX Qty: 90 2RF Dose Instruction: TAKE 1 TABLET BY MOUTH DAILY Rx Instructions: TAKE 1 TABLET BY MOUTH DAILY Follow-up/Referrals: Nestor Pulido MD [Primary Care Provider, Internal Medicine] Time of Disposition: 08:58 Quality NIHSS Nursing Documentation ED NIHSS nursing documentation: reviewed/agree
--- OUTSIDE RECORDS SUMMARY | 2025-02-03 08:46 | XMS_ITS | Clinical Summary ---
Author Organization [facility] Address [address] [place] [address] Care Team Providers Care Video Editing Intern Name Role Phone Jose Moreira MD Primary Care Provider Source Comments [facility],non-owned Affiliates and Associated Physician Practices is amultiple site organization consisting of ambulatory clinics and hospital sitesin [place], [place], [place] and [place]. This disclosure is being madepursuant to the Care Everywhere program and may not contain all information available regarding this patient. 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
--- OUTSIDE RECORDS SUMMARY | 2025-02-03 08:46 | XMS_ITS | Clinical Summary ---
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 Gender Identity Not on file Sexual Orientation Not on file Plan of Treatment Health Maintenance Due Date Last Done Comments Colorectal Cancer Screening Colonoscopy (10 Years) 1952 Hepatitis C 1970 DTaP, Tdap and Td Vaccines (1 - Tdap) 1971 Pneumococcal Vaccine: 50+ Years (1 of 1 - PCV) 2002 Zoster Vaccines (1 of 2) 2002 Annual Medicare Wellness Visit 2017 COVID-19 Vaccine (2024- season) 2024 10/05/2021, 02/07/2021, 06/01/2020, Additional history exists Influenza Adult (#1) 2024 12/16/2017, 12/29/2016, 02/17/2015 RSV Immunization or 60+ Years (1 - 1-dose 75+ series) 2027 Hepatitis A Vaccines Aged Out No long er eligible based on patient's age to complete this topic Meningococcal B Vaccine Aged Out No l onger eligible based on patient's age to complete this topic Meningococcal Vaccine Aged Out No kinsey gian eligible based on patient's age to complete this topic RSV Immunizations Under 20 Months Aged Out No longer eligible based on patient's age to complete this topic Insurance MEDICARE
[2025-02-03 08:50] VITALS: BP 128/73; PULSE 73; RESP 18; TEMP 36.4; O2SAT 97
== END 2025-02-03 09:01 | disposition home or self-care (01) ==
PROVIDERS: Emergency Provider Nurse Practitioner Family; PCP Emergency Medicine
DX: J01.00 Acute maxillary sinusitis, unspecified (principal); E66.01 Morbid (severe) obesity due to excess calories; Z68.36 Body mass index [BMI] 36.0-36.9, adult; I10 Essential (primary) hypertension; E78.2 Mixed hyperlipidemia; G47.33 Obstructive sleep apnea (adult) (pediatric); Z87.891 Personal history of nicotine dependence; Z98.84 Bariatric surgery status
CPT/HCPCS: 99213; G0463